=== PATIENT | male | born 1950 | race Two or more races ===

== ENCOUNTER 2018-12-31 16:08 | Inpatient (IN) | payer MEDICAID, MEDICARE ==
[~2018-12-31] VITALS: Ht 177.8 cm; Wt 85.4 kg
[2018-12-31] MEDS ORDERED: TETANUS-DIPTH-ACEL PERTUSSIS 0.5ML SYRG IM ONE (17:00)
[2018-12-31] MEDS ORDERED: VANCOMYCIN 1GM/250ML 250 ML IV ONE (17:00)
[2018-12-31] MEDS ORDERED: SODIUM CHLORIDE 0.9% 1,000 ML IV ONE (17:00)
[2018-12-31 17:30] LABS: Basophils # (auto) 0 uL; Basophils % (auto) 0.2 % (0.0-2.0); Eosinophils # (auto) 0 uL; Eosinophils % (auto) 0.1 % (0.0-7.0); Hemoglobin 13.3 g/dL (13.5-17.5); Lymphocytes % (auto) 5.9 % (10.0-50.0); Mean Corpuscular Hemoglobin 34.6 pg (28.0-32.0); Mean Corpuscular Volume 101.6 fL (80.0-100.0); Monocytes # (auto) 2.4 uL; Monocytes % (auto) 13.7 % (0.0-12.0); Neutrophils # (auto) 13.9 uL; Neutrophils % (auto) 80.1 % (37.0-80.0); Platelet Count (auto) 190 10^3/uL (140-450); Red Blood Cells 3.84 10^6/uL (4.5-5.90); Red Cell Distribution Width 14.7 % (11.8-14.3); White Blood Cell 17.3 10^3/uL (4.4-10.8)
[2018-12-31 17:43] LABS: Alanine Aminotransferase 45 U/L (16-61); Albumin 2.3 g/dL (3.4-5.0); Anion Gap 8 (5-15); Aspartate Aminotransferase 80 U/L (15-37); BUN/Creatinine Ratio 23.6; Blood Urea Nitrogen 34 mg/dL (7-18); Calcium 7.5 mg/dL (8.5-10.1); Carbon Dioxide 21 mmol/L (21-32); Chloride 96 mmol/L (98-107); GFR African American 63 mL/min; GFR Non-African American 52 mL/min; Glucose 138 mg/dL (74-106); Potassium 5.3 mmol/L (3.5-5.1); Sodium 125 mmol/L (136-145)
[2018-12-31 17:44] LABS: Lactic Acid w/Reflex 2.4 mmol/L (0.4-2.0)
[2018-12-31 17:48] LABS: Alkaline Phosphatase 130 U/L (45-117)
[2018-12-31] MEDS ORDERED: cefTRIAXone 1GM/50ML D5W 50 ML IV ONE (19:15)
[2018-12-31] MEDS ORDERED: ONDANSETRON HCL 4 MG/2 ML VIAL IV ONE (19:45)
[2018-12-31] MEDS ORDERED: MORPHINE SULFATE 4 MG/ML SYR/VIAL IV ONE (19:45)
[2018-12-31 20:00] VITALS: BP 101/62
[2018-12-31] MEDS ORDERED: ONDANSETRON HCL 4 MG/2 ML VIAL IV PRN (20:45)
[2018-12-31] MEDS: SODIUM CHLORIDE 0.9% 1,000 ML IV SCH (20:45)
[2018-12-31] MEDS ORDERED: VANCOMYCIN PER PHARMACY 0 MG IV SCH (20:45)
[2018-12-31] MEDS ORDERED: SODIUM CHLORIDE 0.9% 500 ML IV ONE (20:45)
[2018-12-31] MEDS ORDERED: ACETAMINOPHEN 325 MG TAB PO PRN (20:45)
[2018-12-31] MEDS: FAMOTIDINE 20 MG TAB PO SCH (22:24)
[2018-12-31] MEDS: HYDROcodone-ACET 5/325MG TAB PO PRN (22:24)
[2018-12-31 23:38] LABS: Anion Gap 11 (5-15); BUN/Creatinine Ratio 21.4; Blood Urea Nitrogen 28 mg/dL (7-18); Calcium 7.5 mg/dL (8.5-10.1); Carbon Dioxide 18 mmol/L (21-32); Chloride 97 mmol/L (98-107); GFR African American 70 mL/min; GFR Non-African American 58 mL/min; Glucose 111 mg/dL (74-106); Sodium 126 mmol/L (136-145)
[2019-01-01] MEDS: HYDROcodone-ACET 5/325MG TAB PO PRN (04:33)
[2019-01-01 04:46] VITALS: BP 118/58
[2019-01-01 07:01] LABS: Hematocrit 39.3 % (41.0-53.0); Hemoglobin 13.7 g/dL (13.5-17.5); Mean Corpuscular Hgb Conc. 34.9 g/dL (32.0-36.0); Red Blood Cells 3.92 10^6/uL (4.5-5.90); Red Cell Distribution Width 14.3 % (11.8-14.3)
[2019-01-01 07:03] LABS: Mean Corpuscular Volume 100.2 fL (80.0-100.0); Platelet Count (auto) 177 10^3/uL (140-450); White Blood Cell 19.5 10^3/uL (4.4-10.8)
[2019-01-01 07:21] LABS: Blast Cells 0; Eosinophils % (manual) 0 (0-7); Myelocytes % 0; Promyelocytes % 0; Reactive Lymphocytes 0
[2019-01-01 07:30] LABS: BUN/Creatinine Ratio 24.4; Calcium 7.7 mg/dL (8.5-10.1); Potassium 4.4 mmol/L (3.5-5.1)
--- NOTE | 2019-01-01 07:58 | NUR ---
Opening Shift Note Assumed care of patient, resting in bed with eyes closed, respirations even and unlabored. No S/S of distress/SOB or pain. POC board updated, will continue to monitor for changes Q1hr and PRN.
[2019-01-01 08:47] VITALS: BP 95/62
[2019-01-01] MEDS: FAMOTIDINE 20 MG TAB PO SCH ×2 (08:51→22:00)
[2019-01-01] MEDS: LEVOFLOXACIN 500MG 100 ML IV SCH (08:51)
[2019-01-01 09:15] LABS: Band Neutrophils % (manual) 30; Basophils % (manual) 1 (0.0-2.0); Lymphocytes % (manual) 4 (10.0-50.0); Metamyelocytes % 4; Monocytes % (manual) 13 (0-12)
--- NOTE | 2019-01-01 10:15 | NUR ---
WOUND CARE loom operator rounded on patient.
--- NOTE | 2019-01-01 10:35 | NUR ---
WOUND CARE NOTE: Wound care in to see patient per wound care request regarding "right forearm cellulitis with open sores" that are noted present on admission. Bedside nurse took photograph of patient's wounds upon admission for reference. Patient is 68 years old male with admitting diagnosis of R Forearm Cellulitis. Patient is resting in bed in Rm 288B. He's awake,alert and oriented. He's ambulatory and self turn and reposition. His Imer score is 21. Noted patient's Rt arm is edematous and erythremic. Multiple scabbed wound noted to anterior medial aspect of R forearm. Lateral aspect of R forearm has 9x5cm dark maroon, soft and boggy to touch with small cut and draining moderate amount of sanguinous drainage, no odor noted. Patient reported that few days ago he accidentally "smash" his Rt hand on a metal when he's working on a truck. He added that he then noted redness, swelling and pain, he thinks he's bitten by a spider but not sure. Cleansed patient's Rt forearm wounds with wound cleanser, patted dry with gauze, covered with absorbent pad, wrapped with Kerlix and secured with tape. Elevated patient's Rt arm on pillows. Patient tolerated well and denies any other wound. RECOMMENDATION: Daily/PRN dressing change to R forearm wounds per MD order, Dietary consult, possible surgical consult, elevate affected extremity on pillows, continue monitoring by wound care while patient is hospitalized. Addendum: 01/01/19 at 1319 by Thuy Petersen RN Amended: Links added.
[2019-01-01] MEDS: VANCOMYCIN 1GM/250ML 250 ML IV SCH (11:18)
[2019-01-01] MEDS: SODIUM CHLORIDE 0.9% 1,000 ML IV SCH ×3 (11:18→19:40)
--- NOTE | 2019-01-01 13:00 | NUR ---
ROUNDING Dr Goldsmith rounding on patient.
[2019-01-01 13:11] VITALS: BP 102/54
--- NOTE | 2019-01-01 15:22 | NUR ---
URINE Patient again educated on orders for urine sample. Specimen cup placed bedside.
[2019-01-01 16:59] VITALS: BP 96/59
--- NOTE | 2019-01-01 20:00 | NUR ---
OPENING NOTE RECEIVED REPORT FROM ISATU RN. ASSUMING ROLE OF CARE OF PATIENT AT THIS TIME. PATIENT SHOWING NO SIGN OF DISTRESS, SHORTNESS OF BREATH, AND PATIENT DENIES ANY PAIN. DRESSING ON ARM IS CLEAN DRY AND INTACT. IV IS CLEAN, ASYMPTOMATIC AND PATENT. PATIENT EDUCATED ON PLAN OF CARE FOR THE NIGHT AND PATIENT VERBALIZED UNDERSTANDING. BED LOWERED, CALL LIGHT WITHIN REACH, AND PATIENT WILL BE ROUNDED ON EVERY HOUR AND NEEDED.
[2019-01-01] MEDS ORDERED: LEVOFLOXACIN 500MG 100 ML IV ONE (21:00)
[2019-01-01 22:00] VITALS: BP 87/55
[2019-01-01] MEDS ORDERED: DIGOXIN (250MCG/ML) 2 ML AMPULE IV ONE (22:00)
[2019-01-01] MEDS ORDERED: SODIUM CHLORIDE 0.9% 500 ML IV ONE (22:00)
--- NOTE | 2019-01-01 22:00 | NUR ---
REPORT GIVEN TO GERALD CHILDRESS PATIENT TRANSFERRED ONTO TELEMETRY PER EMIL POON'S ORDERS. FURTHER ORDERS RECEIVED AND IMPLEMENTED PRIOR TO TRANSFER OF CARE. PATIENT IS RESTING COMFORTABLY AND IS ASYMPTOMATIC.
--- NOTE | 2019-01-01 22:00 | NUR ---
PATIENT'S VITALS TAKEN AND SHOWED INCREASED HEART RATE IN THE 150S. EKG PERFORMED AND SHOWING AFIB WITH RVR. BP WAS 87/55 AND TEMP WAS 98.6. PATIENT DENIES AND CHEST PAIN OR SHORTNESS OF BREATH. EKG TAKEN DOWN TO POON FOR SIGNATURE AND ORDERS.
--- NOTE | 2019-01-01 23:59 | NUR ---
LATEST VITAL SIGNS BP 97/64,TEMP 97.8, RR 18, 02 SAT 95%, HR 141, PATIENT REMAINS ASYMPTOMATIC, DENIES SOB, CHEST PAIN, AND PALPITATIONS. WILL CONTINUE TO MONITOR
[2019-01-02] VITALS (34 sets, daily range): BP systolic 93–173; BP diastolic 28–99
--- NOTE | 2019-01-02 00:50 | NUR ---
MYRNA HOSPITALIST, PATIENT STILL RUNNING AFIB AT 140'S, ASYMPTOMATIC. RECEIVED ORDER FROM EMIL POON TO REPEAT DIGOXIN 125 M[address] IV ONCE AND PL[address] A CARDIOLOGY CONSULT
[2019-01-02] MEDS ORDERED: DIGOXIN (250MCG/ML) 2 ML AMPULE IV ONE (01:00)
[2019-01-02 01:21] LABS: Alcohol, Urine < 3.0 mg/dL (0-5); Amphetamine Screen, Urine POSITIVE (NEGATIVE); Barbiturate Scree,Urine NEGATIVE (NEGATIVE); Benzodiazephine Screen, Urine NEGATIVE (NEGATIVE); Cannabinoid Screen, Urine POSITIVE (NEGATIVE); Cocaine Screen, Urine NEGATIVE (NEGATIVE); Phencyclidine Screen, Urine NEGATIVE (NEGATIVE)
[2019-01-02 01:23] LABS: Urine Bacteria NONE SEEN /hpf (None Seen); Urine Blood Negative /uL (Negative); Urine Specific Gravity 1.011 (1.001-1.035); Urine WBC 3 /hpf (0 - 3)
[2019-01-02 01:29] LABS: Opiate Scree,Urine POSITIVE (NEGATIVE)
[2019-01-02] MEDS: VANCOMYCIN 1GM/250ML 250 ML IV SCH ×2 (04:55→23:34)
[2019-01-02] MEDS: SODIUM CHLORIDE 0.9% 1,000 ML IV SCH ×3 (04:56→17:49)
--- NOTE | 2019-01-02 05:05 | NUR ---
PATIENT IS ON SVT AT 160-170, PATIENT REMAINS ASYMPTOMATIC. PAGED HOSPITALIST, 12 LEAD EKG DONE. WAITING FOR CALL BACK
[2019-01-02] MEDS ORDERED: ADENOSINE 6 MG/2 ML INJ IV ONE ×3 (05:24→05:45)
--- NOTE | 2019-01-02 05:29 | NUR ---
ADENOSINE: Called to bedside to administer Adenosine IV to pt as pt in SVT w/ rate 170, BP 98/57. With hospitalist at bedside, Adenosine 6mg rapid IVP administered at 0529. Pt's HR slowed down initially to rate in 90s revealing a rhythm of A-flutter. Rhythm then changed into a ST w/ frequent PACs and a rate ranging from 90s to 110s. BP 111/62 following conversion. Pt to be upgraded to [facility] status and started on Amiodarone gtt.
[2019-01-02] MEDS ORDERED: SODIUM CHLORIDE 0.9% 1,000 ML IV ONE ×2 (05:30→05:45)
[2019-01-02] MEDS ORDERED: AMIODARONE HCL 150 MG in D5W 5% 100 ML IV ONE (05:45)
[2019-01-02] MEDS ORDERED: AMIODARONE HCL 900 MG IV ONE (05:45)
[2019-01-02] MEDS ORDERED: AMIODARONE HCL (50 MG/ ML) 3 ML VIAL IV ONE (05:45)
[2019-01-02] MEDS ORDERED: AMIODARONE HCL 900 MG in DEXTROSE 500 ML IV SCH (05:47)
[2019-01-02 06:08] LABS: Basophils # (auto) 0.1 uL; Eosinophils # (auto) 0.2 uL; Hemoglobin 14.5 g/dL (13.5-17.5); Mean Corpuscular Volume 100.3 fL (80.0-100.0); Monocytes # (auto) 1.6 uL; Monocytes % (auto) 8.4 % (0.0-12.0)
--- NOTE | 2019-01-02 06:10 | NUR ---
TRANSFERRED PATIENT TO ICU ROOM 104. REPORT GIVEN TO MONROE MARTINEZ
[2019-01-02 06:12] LABS: Basophils % (auto) 0.4 % (0.0-2.0); Hematocrit 41.8 % (41.0-53.0); Lymphocytes # (auto) 1.3 uL; Lymphocytes % (auto) 6.8 % (10.0-50.0); Mean Corpuscular Hemoglobin 34.7 pg (28.0-32.0); Mean Corpuscular Hgb Conc. 34.6 g/dL (32.0-36.0); Neutrophils # (auto) 15.7 uL; Neutrophils % (auto) 83.4 % (37.0-80.0); Nucleated Red Blood Cells % 0.1 %; Platelet Count (auto) 187 10^3/uL (140-450); Red Blood Cells 4.16 10^6/uL (4.5-5.90); Red Cell Distribution Width 14.4 % (11.8-14.3); White Blood Cell 18.8 10^3/uL (4.4-10.8)
--- NOTE | 2019-01-02 06:15 | NUR ---
RECEIVED PATIENT FROM TELEMETRY. REPORT FROM GERALD RN. PT. ALERT AND ORIENTED X4. ABLE TO HELP WITH TRANSFER TO ICU BED. PLACED ON NUCLEAR CONTROL ROOM OPERATOR WHICH SHOWS SINUS RHYTHM 90'S, WITH FREQUENT PAC'S, SBP 95/59. LUNGS CLEAR, ON ROOM AIR. SATS 95%. IV SITE TO RIGHT EJ PRESENT. NEW IV SITE STARTED TO LFA. VANCOMYCIN IN PROGRESS. MRSA COLLECTED.
[2019-01-02 06:21] LABS: Albumin 1.6 g/dL (3.4-5.0); Anion Gap 8 (5-15); Blood Urea Nitrogen 36 mg/dL (7-18); Calcium 7.3 mg/dL (8.5-10.1); Carbon Dioxide 21 mmol/L (21-32); Chloride 99 mmol/L (98-107); Glucose 124 mg/dL (74-106); Potassium 3.9 mmol/L (3.5-5.1); Sodium 128 mmol/L (136-145)
[2019-01-02 06:27] LABS: Alanine Aminotransferase 42 U/L (16-61); Alkaline Phosphatase 148 U/L (45-117); Aspartate Aminotransferase 76 U/L (15-37); Bilirubin, Total 1.2 mg/dL (0.2-1.0); GFR African American 75 mL/min; GFR Non-African American 62 mL/min
--- NOTE | 2019-01-02 06:30 | NUR ---
RIGHT FOREARM TO UPPER ARM SWOLLEN RED AND FIRM. DRESSING TO RIGHT ELBOW AREA DUE TO ABSCESS PRESENT. PT. 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
--- NOTE | 2019-01-02 06:55 | NUR ---
SPOKE TO CLEVE STEIN REGARDING STARTING AMIODARONE DRIP, INSTRUCTED TO HOLD FOR NOW.
--- NOTE | 2019-01-02 07:20 | NUR ---
OPENING NOTE RECEIVED REPORT AND ASSUMED CARE OF PT FROM MICHELLE CHILDRESS
[2019-01-02] MEDS ORDERED: ceFAZolin 1GM/50ML 0 ML IV ONE (08:32)
[2019-01-02] MEDS ORDERED: ceFAZolin 1GM VL ONE (08:32)
--- NOTE | 2019-01-02 09:10 | NUR ---
SURGERY CONSULT STUDENT AT BEDSIDE ASSESSED WOUND FOR POSSIBLE SURGERY TODAY
--- NOTE | 2019-01-02 09:10 | NUR ---
WOUND CULTURE SENT TO LAB VIA [facility]
--- NOTE | 2019-01-02 09:15 | NUR ---
DR. BORREGO AT BEDSIDE SPOKE WITH PT. PT VERBALIZES UNDERSTANDING OF PLAN. ORDERS RECEIVED
[2019-01-02] MEDS: LEVOFLOXACIN 500MG 100 ML IV SCH (09:47)
[2019-01-02] MEDS: FAMOTIDINE 20 MG TAB PO SCH ×2 (09:48→22:07)
--- NOTE | 2019-01-02 10:00 | NUR ---
Debra NGO AT BEDSIDE ORDERS RECEIVED
[2019-01-02] MEDS ORDERED: DILTIAZEM HCL 60 MG TAB PO ONE (10:15)
--- NOTE | 2019-01-02 10:30 | NUR ---
DR. RUSSO AT BEDSIDE PLAN TO BE TAKEN TO SURGERY TOMORROW FOR RIGHT ARM
--- NOTE | 2019-01-02 10:40 | NUR ---
PT VOIDED IN THE TOILET MINIMAL ASSISTANCE NEEDED
[2019-01-02] MEDS ORDERED: POTASSIUM CHL 20 Meq TABLET PO ONE (10:45)
[2019-01-02 10:52] LABS: Partial Thromboplastin Time 41.5 sec (23.64-32.05)
--- NOTE | 2019-01-02 11:11 | NUR ---
NUTRITION CONSULT/ASSESSMENT NOTES Please refer to link notes of nutrition screen form filed under the intervention section of the plan of care for further details. Est. Needs: 1800 kcal to 2200 kcal (25-30 kcal/kgBW), 73 gms to 102 gms pro (1.0-1.4 gms/kgBW d/t severe hypoalbuminemia, wound healing). Will continue to monitor pertinent labs and reassess nutrient need prn Thank you for this consult. Addendum: 01/02/19 at [address] Amended: Links added.
[2019-01-02 11:47] LABS: INR 1.46 (0.9-1.15)
[2019-01-02] MEDS: AMIODARONE HCL 900 MG in DEXTROSE 500 ML IV SCH (11:47)
[2019-01-02] MEDS: DILTIAZEM HCL 60 MG TAB PO SCH ×2 (14:03→22:11)
--- NOTE | 2019-01-02 14:20 | NUR ---
CHANGED DRESSING AND CHANGED LINENS CLEANED WOUND WITH WOUND CLEANSER, PAT DRY WITH GAUZE, NON-ADHESIVE OPTIFOAM PLACED WITH ABD PAD FOR DRAINAGE AND WRAPPED LOOSELY WITH CHUCKS FOR EXCESS DRAINAGE. PT TOLERATED PROCEDURE WELL. FULL LINEN CHANGE DONE
--- NOTE | 2019-01-02 14:44 | NUR ---
PT VOIDED IN TOILET WITH MINIMAL ASSISTANCE PT NOW SITTING IN CHAIR. STATES WANTS TO SIT IN CHAIR FOR A LITTLE WHILE. NO S/S OF DISTRESS. WILL CONTINUE TO MONITOR
--- NOTE | 2019-01-02 16:00 | NUR ---
PT STATES CHEST PAIN WITH MOVEMENT. EKG DONE.
--- NOTE | 2019-01-02 16:20 | NUR ---
DR. NGO PAGED REGARDING PT STATING CHEST PAIN AND EKG DONE. ORDERS RECEIVED
--- NOTE | 2019-01-02 18:00 | NUR ---
PT TOOK OFF DRESSING RE-APPLIED NON-OCCLUSIVE DRESSING WITH CHUCKS OVER ARM. WILL CONTINUE TO MONITOR
--- NOTE | 2019-01-02 19:10 | NUR ---
CLOSING NOTE SHIFT REPORT GIVE BACK AND CARE ENDORSED TO MICHELLE CHILDRESS
--- NOTE | 2019-01-02 20:00 | NUR ---
ASSESSMENT: ALERT AND ORIENTED. UP TO TOILET. DRESSING TO CRISTOPHER OFF, LARGE AMT. OF SEROSANGUINEOUS DRAINAGE NOTED. LARGE AMT. OF REDNESS EXTENDING FROM MID ARM TO AXILLA AREA, TIGHT, HOT AND WITH DECREASE SENSATION PER PATIENT TO MID PORTION OF AFFECTED AREA. PUNCTURE AREA PER PATIENT WITH ESCHAR PRESENT AND DIME SIZE OPEN AREA WITH FIBER TISSUE WHICH APPEARS TO DRAIN THE MOST. OPTIFOAM TO ECCHYMOTIC AREA TO HELP CONTROL WITH DRAINAGE. REST OF AREA CLEANED WITH HCG WIPES. SEVERAL OTHER PUNCTURE SITE NOTED ALONG ARMS WITH SCABS FORMATION BUT TO SIGNS OF INFECTION. WILL CONTINUE TO MONITOR. CARDIAC - SINUS RHYTHM 80'S WITH FREQUENT PVC'S, SBP 120'S. DENIES ANY CHEST PAIN OR SHORTNESS OF BREATH. PT. ABLE TO TRANSFER TO TOILET WITH MINIMAL ASSIST. ABDOMEN - SOFT - (+) B.S B.M TONIGHT. POOR APPETITE, 25% OF MEAL TRAY CONSUMED. VOIDS - URINAL, INSTRUCTED TO SAVE TO ASSESS IV TO RIGHT EJ LEAKING. IV SITE TO LFA #20 INTACT. FLUIDS TRANSFERRED TO THIS SITE. RADIAL AND PEDAL PULSES 2+ BILATERALLY.
[2019-01-02] MEDS: TEMAZEPAM 15 MG CAP PO PRN (22:12)
--- NOTE | 2019-01-02 22:45 | NUR ---
PT. TO BE TRANSFERRED TO [facility] PER ORDERS. REPORT GIVEN TO LOWELL CHILDRESS. WILL TRANSFER PATIENT VIA BED. PT. AWARE OF TRANSFER AT THIS TIME.
--- NOTE | 2019-01-02 23:40 | NUR ---
ICU XFER TO BED 262 PATIENT IS AWAKE ALERT AND ORIENTED. LUNGS CLEAR TO AUSCULTATION ON RA POX 100%. BOWEL SOUNDS ACTIVE, ABD IS ROUND AND NON-TENDER. RIGHT FOREARM WITH OPTIFOAM OPENED TO ASSESS SITE, ABSCESS TO RIGHT FA HAS COPIOUS AMOUNT OF SEROUS-SANGUINEOUS DRAINAGE, NO FOUL ODOR NOTED.NECROTIC AREA TO RIGHT FA WITH PITTING EDEMA TO RIGHT HAND +2,ERYTHEMA AND WARMTH NOTED FROM RIGHT HAND TO CHEST. NEW OPTIFOAM PLACED TO RIGHT FOREARM. VS WNL: SEE VS SPREADSHEET. PATIENT MADE AWARE OF PROCEDURE SCHEDULED TOMORROW, AND IS AWARE AND VERBALIZES UNDERSTANDING, AWARE OF NPO STATUS AFTER MIDNIGHT. ORANGE JUICE PROVIDED AT THIS TIME.RIGHT EJ 18 GAUGE IV FLUSHED AND PATENT, LEFT FA 20G FLUSHED AND PATENT, CONNECTED TO NS PER ORDERS.ORIENTED TO CALL LIGHT AND INSTRUCTED TO NOT GET OUT OF BED WITHOUT ASSISTANCE AND TO CALL PRN, PATIENT VERBALIZES UNDERSTANDING CONTINUE POC.
[2019-01-03] VITALS (7 sets, daily range): BP systolic 103–158; BP diastolic 56–80
--- NOTE | 2019-01-03 00:23 | NUR ---
SB ASSIST PATIENT TO TOILET PATIENT SITTING UP ON SIDE OF BED, REQUESTING TO USE TOILET.GAIT NOTED TO BE UNSTEADY AND SHUFFLED. EDUCATED AND INFORMED PATIENT NOT TO GET OUT OF BED AND URINAL PROVIDED. PATIENT BACK TO BED WITHOUT INCIDENT. CONTINUE TO MONITOR, BED ALARM PLACED.
[2019-01-03] MEDS: SODIUM CHLORIDE 0.9% 1,000 ML IV SCH ×4 (02:50→18:20)
--- NOTE | 2019-01-03 04:15 | NUR ---
AM CARE/CHG WIPES/WOUND CARE LARGE AMOUNTS OF SEROUS-SANGUINEOUS DRAINAGE SATURATED BED LINEN. COMPLETE BED LINEN CHANGE DONE, PATIENT CLEANSED WITH CHG WIPES FOR PROCEDURE SCHEDULED TODAY. WOUND CARE DONE TO RIGHT FOREARM ABSCESS AND WRAPPED WITH KERLIX. SKIN INTEGRITY REASSESSED AT THIS TIME, SACRUM INTACT, NO NEW SKIN ISSUES. GOWN PLACED ON PATIENT, REPOSITIONED IN BED FOR COMFORT. IV DRESSING TO RIGHT EJ DONE PER HOSPITAL PROTOCOL. CALL LIGHT GIVEN TO PATIENT. CONTINUE MONITORING CLOSELY.
--- NOTE | 2019-01-03 04:27 | NUR ---
12 LEAD EKG DONE AND PLACED IN HARD CHART
[2019-01-03 05:44] LABS: Basophils # (auto) 0.1 uL; Basophils % (auto) 0.3 % (0.0-2.0); Eosinophils # (auto) 0.3 uL; Eosinophils % (auto) 1.7 % (0.0-7.0); Hemoglobin 13.9 g/dL (13.5-17.5); Lymphocytes # (auto) 1.5 uL; Lymphocytes % (auto) 9.2 % (10.0-50.0); Mean Corpuscular Hemoglobin 34.7 pg (28.0-32.0); Mean Corpuscular Hgb Conc. 34.8 g/dL (32.0-36.0); Mean Corpuscular Volume 99.9 fL (80.0-100.0); Monocytes # (auto) 1.6 uL; Monocytes % (auto) 9.8 % (0.0-12.0); Neutrophils # (auto) 12.6 uL; Platelet Count (auto) 206 10^3/uL (140-450); Red Cell Distribution Width 14.6 % (11.8-14.3); White Blood Cell 15.9 10^3/uL (4.4-10.8)
[2019-01-03] MEDS: DILTIAZEM HCL 60 MG TAB PO SCH ×3 (05:54→19:32)
[2019-01-03 06:19] LABS: Albumin 1.6 g/dL (3.4-5.0); Potassium 3.8 mmol/L (3.5-5.1)
[2019-01-03 06:26] LABS: BUN/Creatinine Ratio 29.5; Bilirubin, Total 1.3 mg/dL (0.2-1.0); Calcium 7.4 mg/dL (8.5-10.1); Total Protein 6.1 g/dL (6.4-8.2)
--- NOTE | 2019-01-03 07:30 | NUR ---
RECEIVED PATIENT LYING IN BED AWAKEN WHEN NAME WAS CALLED A/O TIMES 4, O2 BY R/A, STATES HE USES THE URINAL, RTEJ 18G FLUSHED AND PATENT, NS AT 150ML/HR INFUSING INTO THE LFA 20G BY THE IV PUMP, DRESSING TO THE RT ARM,
--- NOTE | 2019-01-03 08:30 | NUR ---
EXPRESS TO THE PATIENT THAT HE CAN'T HAVE ANY THING TO EAT BECAUSE OF THE SURGERY, STATES HE KNOWS
--- NOTE | 2019-01-03 08:45 | NUR ---
Suki NGO MP IN TO SEE THE PATIENT AND WROTE FOR CLEARANCE FOR SURGERY
--- NOTE | 2019-01-03 09:10 | NUR ---
DR BORREGO IN TO SEE THE PATIENT NO NEW ORDERS
--- NOTE | 2019-01-03 09:30 | NUR ---
EXPLAIN MEDICATIONS TO THE PATIENT, REGARDING THE DOSAGE, USAGE, AND SIDE EFFECTS, VERBALIZED THAT HE UNDERSTOOD AND PO MEDS HELD PATIENT IS NPO
[2019-01-03] MEDS: FAMOTIDINE 20 MG TAB PO SCH ×2 (09:38→19:30)
[2019-01-03] MEDS: LEVOFLOXACIN 500MG 100 ML IV SCH (09:42)
--- NOTE | 2019-01-03 10:02 | NUR ---
assessment No needs identified Addendum: 01/04/19 at 1002 by Aysha KOVACS Amended: Links added.
--- NOTE | 2019-01-03 10:06 | NUR ---
MAGANIGN IN BED WAITING TO GO TO SURGERY, STATES HE IS HUNGRY AND WANTS SOME WATER, EXPRESS TO HIM THAT HE CAN'T EAT UNTIL AFTER THE SURGERY AND STATES HE KNOWS
--- NOTE | 2019-01-03 10:23 | NUR ---
FRIENDS IN TO VISIT WITH THE PATIENT
[2019-01-03] MEDS: VANCOMYCIN 1GM/250ML 250 ML IV SCH ×2 (10:49→19:32)
--- NOTE | 2019-01-03 11:00 | NUR ---
SURGEON IN TO SEE THE PATIENT AND EXPRESS TO HIM THAT THE PROCEDURE MAY BE A LITTLE LATER DUE TO AN EMERGENCY
--- NOTE | 2019-01-03 11:24 | NUR ---
FRIENDS LEFT AND WENT HOME
--- NOTE | 2019-01-03 11:42 | NUR ---
FRIEND BACK TO THE ROOM
[2019-01-03] MEDS: AMIODARONE HCL 900 MG in DEXTROSE 500 ML IV SCH (11:47)
--- NOTE | 2019-01-03 12:19 | NUR ---
REPORT CALLED TO THE PRE- OP NURSE AND PATIENT TAKEN TO THE OR BY THE BED
--- NOTE | 2019-01-03 13:20 | NUR ---
PATIENT STILL IN THE OR
[2019-01-03] MEDS ORDERED: ceFAZolin 1GM VL ONE (14:05)
[2019-01-03] MEDS ORDERED: ceFAZolin 1 GM/50ml D5W BAG /AE IV ONE (14:20)
[2019-01-03] MEDS ORDERED: ONDANSETRON HCL 4 MG/2 ML VIAL IV ONE (14:20)
[2019-01-03] MEDS ORDERED: DexAMETHasone SOD PHOS 10MG/1ML VIAL INJ IV ONE (14:20)
[2019-01-03] MEDS ORDERED: LEVOFLOXACIN 500MG 100 ML IV ONE (14:24)
[2019-01-03] MEDS ORDERED: fentaNYL CITRATE 100 MCG/2 ML VL ONE (14:26)
[2019-01-03] MEDS ORDERED: MIDAZOLAM HCL 1MG/1ML-2 ML VIAL ONE (14:26)
[2019-01-03] MEDS ORDERED: PROPOFOL 10 MG/ML 20 ML IV ONE (14:27)
[2019-01-03] MEDS ORDERED: KETOROLAC TROMETH 15 mg/ml 1ML VL IV ONE (16:00)
[2019-01-03] MEDS ORDERED: HYDROmorphone HCL 2 MG/ML VL IV PRN (16:00)
[2019-01-03] MEDS: MIDAZOLAM HCL 1MG/1ML-2 ML VIAL IV PRN ×2 (16:00→16:15)
--- NOTE | 2019-01-03 16:25 | NUR ---
RECEIVED REPORT FROM THE RECOVERY ROOM NURSE REGARDING THE PATIENT
--- NOTE | 2019-01-03 16:40 | NUR ---
RECEIVED PATIENT FROM THE ROOM, DROWSY BUT ALERT, DRESSING TO THE RT FOREARM, NS INFUSING INTO THE REJ BY CONNECTED TO THE IV PUMP, 20G LFA INTACT AND PATENT, STATES HE CAN STILL USE THE URINAL, HOLDING ARM ABOVE HIS HEAD STATES IT FEELS BETTER VS 97'2-86-20-154/80
--- NOTE | 2019-01-03 17:32 | NUR ---
LYING N BED APPEARS TO BE SLEEPING
--- NOTE | 2019-01-03 18:10 | NUR ---
FAMILY CAME TO SEE ABOUT PATIENT AND WOKE HIM UP, THEN HE WANTED TO EAT OR ELSE HE WAS LEAVING , EXPRESS TO HIM THAT DINNER WAS NOT HERE YET, AND WHEN IT CAME,I WOULD GIVE IT TO HIM, CALLED AND SPOKE TO THE HIM
--- NOTE | 2019-01-03 18:30 | NUR ---
SAT UP IN BED AND ATE HIS DINNER, DRESSING TO THE RFA, PATIENT MOVES IN THE BED A LOT STATES HE CAN'T BE STILL, O2 BY R/A USES THE URINAL, SALINE LOCK TO THE LFA 20G INTACT AND PATENT, REJ 18G WITH NS AT 150ML/HR INFUSING BY THE IV PUMP, NOT COMPLAINING OF ANY PAIN TO THE ARM, WILL CONTNINUE TO MONITOR AND GIVE REPORT TO THE NEXT SHIFT
[2019-01-03] MEDS: HYDROcodone-ACET 5/325MG TAB PO PRN (19:30)
[2019-01-03] MEDS: TEMAZEPAM 15 MG CAP PO PRN (19:30)
[2019-01-04] MEDS: SODIUM CHLORIDE 0.9% 1,000 ML IV SCH ×4 (01:00→21:23)
[2019-01-04 04:00] VITALS: BP 148/78
[2019-01-04 05:13] LABS: Basophils # (auto) 0 uL; Eosinophils # (auto) 0 uL; Eosinophils % (auto) 0.1 % (0.0-7.0); Hemoglobin 14.9 g/dL (13.5-17.5); Lymphocytes % (auto) 6.5 % (10.0-50.0); Nucleated Red Blood Cells % 0.1 %
[2019-01-04 05:18] LABS: Hematocrit 42.3 % (41.0-53.0); Mean Corpuscular Hemoglobin 34.9 pg (28.0-32.0); Mean Corpuscular Hgb Conc. 35.2 g/dL (32.0-36.0); Mean Corpuscular Volume 99.4 fL (80.0-100.0); Monocytes # (auto) 0.9 uL; Monocytes % (auto) 5.6 % (0.0-12.0); Neutrophils % (auto) 87.8 % (37.0-80.0); Platelet Count (auto) 211 10^3/uL (140-450); Red Blood Cells 4.26 10^6/uL (4.5-5.90); Red Cell Distribution Width 14.7 % (11.8-14.3); White Blood Cell 15.9 10^3/uL (4.4-10.8)
[2019-01-04 05:46] LABS: Albumin 1.8 g/dL (3.4-5.0); BUN/Creatinine Ratio 23.7; Calcium 7.6 mg/dL (8.5-10.1); Potassium 4.8 mmol/L (3.5-5.1)
[2019-01-04 05:49] LABS: Bilirubin, Total 0.8 mg/dL (0.2-1.0); Total Protein 6.4 g/dL (6.4-8.2)
[2019-01-04] MEDS: VANCOMYCIN 1GM/250ML 250 ML IV SCH ×2 (06:01→17:36)
[2019-01-04] MEDS: DILTIAZEM HCL 60 MG TAB PO SCH ×3 (06:03→21:58)
--- NOTE | 2019-01-04 07:50 | NUR ---
Opening Shift Note Assumed care of patient, awake and alert, lying on the right side. No S/S of distress/SOB or pain, stated that he's hungry, juices provided, patient made aware that we are waiting for the breakfast tray. Instructed on POC and to call for assist PRN, will continue to monitor for changes Q1hr and PRN.
[2019-01-04 08:00] VITALS: BP 130/68
--- NOTE | 2019-01-04 08:00 | NUR ---
WOUND CARE NOTE: WOUND VAC ORDERED BY DR. RUSSO. SPOKE WITH DR. RUSSO AT THIS TIME. HE IS ADVISING THAT WOUND VAC BE PLACED TOMORROW ON 01/05/19. PATIENT TO KEEP STERILE POST OPERATIVE DRESSING IN PLACE TILL THEN. DR. RUSSO IS ALSO REQUESTING WOUND VAC FOR HOME AT DISCHARGE. WILL IMPLEMENT HOME WOUND VAC ORDER DOCUMENTATION FOR CHILDREN'S CHOIR DIRECTOR/CASE MANAGEMENT'S ACTION.
--- NOTE | 2019-01-04 08:30 | NUR ---
Patient having breakfast, sitting up on the bed, his families at the bedside asa well.
[2019-01-04] MEDS: LEVOFLOXACIN 500MG 100 ML IV SCH (09:28)
--- NOTE | 2019-01-04 09:45 | NUR ---
Dr. Goldsmith at the bedside, plan of care discussed with patient and his family (daughter and his ex-), received order to transfer to Tele. Will continue to monitor and care.
--- NOTE | 2019-01-04 10:00 | NUR ---
IV insertion left AC IV access obtained, via clean sterile technique by inserting 22 gauge catheter at left AC after 2 attempts. IV secured properly. No trauma to site. Patient tolerated procedure well.
--- NOTE | 2019-01-04 10:00 | NUR ---
The contact number: Daughter Jassi : [phone]) Ex- (Catalina : [phone])
[2019-01-04] MEDS: FAMOTIDINE 20 MG TAB PO SCH ×2 (10:03→21:59)
[2019-01-04] MEDS: HYDROcodone-ACET 5/325MG TAB PO PRN ×3 (10:04→20:02)
--- NOTE | 2019-01-04 10:05 | NUR ---
IV removal at left forearm and right EJ IV DC'd with sterile technique, catheter fully intact. Pressure dressing applied to site. Patient tolerated procedure well.
--- NOTE | 2019-01-04 10:17 | NUR ---
Sharron TAFFY CANDY MAKER for Dr. Castillo seen and examined patient, plan of care discussed with patient and his family, will continue to monitor, no new order for this time.
[2019-01-04] MEDS: AMIODARONE HCL 900 MG in DEXTROSE 500 ML IV SCH (11:47)
[2019-01-04 12:00] VITALS: BP 153/83
--- NOTE | 2019-01-04 12:11 | NUR ---
received a call from Lab that Patient has positive for MRSA : Nares and wound, on contact isolation at this time.
--- NOTE | 2019-01-04 13:29 | NUR ---
Lunch tray provided, but patient still sleeping.
--- NOTE | 2019-01-04 14:13 | NUR ---
Patient had Lunch around 25%, sitting and talking to his families, no complaining of pain, stated that he would like to go home. Patient and his families made aware that we are still waiting for the room at the Tele.
--- NOTE | 2019-01-04 15:08 | NUR ---
No betadine -saturated kerlix available , try to call wound care nurse several time, no body pharmacy picking tech a call, called at the office as well regarding alternative treatment.
--- NOTE | 2019-01-04 15:48 | NUR ---
Provided dressing change at right forearm at this time, clean with cleaning wound: around the wound, clean the wound with NS, PAT dry, cover Kerlix with Betadine, cover with ABD and Kerlix. Will continue to monitor and care. [place]vine given after wound care provided for pain management.
[2019-01-04 16:00] VITALS: BP 140/75
--- NOTE | 2019-01-04 16:24 | NUR ---
Patient is sleeping, lying on the right side, vital sign stable, will continue to monitor and care.
--- NOTE | 2019-01-04 18:07 | NUR ---
[facility] pt transferred to floor [facility] transferred to room 205 via hospital bed, on cardiac cath lab radiology technologist Tele#[id number]. All patient medications and personal belongings transferred with patient to receiving floor. Patient care transferred to Beatris CHILDRESS. The room will ready around 10 minutes.
--- NOTE | 2019-01-04 18:20 | NUR ---
TELEMETRY TRANSFER FROM [facility] Assumed care of patient after report received.
--- NOTE | 2019-01-04 19:20 | NUR ---
Opening Shift Note Assumed care of patient, awake and alert. Family at bed side. Patient verbalizes right arm pain rated 9/10. Will medicate as per order, and reassess. Instructed family and patient on POC and to call for assist PRN, will continue to monitor for changes Q1hr and PRN.
[2019-01-04 20:00] VITALS: BP 154/79
[2019-01-04] MEDS: TEMAZEPAM 15 MG CAP PO PRN (20:01)
[2019-01-04 21:30] VITALS: BP 151/79
[2019-01-05] VITALS (7 sets, daily range): BP systolic 142–184; BP diastolic 61–84
[2019-01-05] MEDS: SODIUM CHLORIDE 0.9% 1,000 ML IV SCH ×4 (03:40→23:40)
--- NOTE | 2019-01-05 03:52 | NUR ---
ROUNDS PATIENT RESTING IN BED COMFORTABLY, EVEN AND UNLABORED RESPIRATIONS. NO S/S OF PAIN/SOB OR DISCOMFORT. CALL LIGHT WITHIN REACH. WILL CONTINUE ROUNDING Q1H AND PRN.
[2019-01-05] MEDS: HYDROcodone-ACET 5/325MG TAB PO PRN ×4 (04:37→18:30)
[2019-01-05] MEDS: VANCOMYCIN 1GM/250ML 250 ML IV SCH ×2 (06:12→17:33)
[2019-01-05] MEDS: DILTIAZEM HCL 60 MG TAB PO SCH ×3 (06:12→21:40)
--- NOTE | 2019-01-05 07:20 | NUR ---
Opening Shift Note Assumed care of patient, awake and alert. No S/S of distress/SOB or pain. Instructed on POC and to call for assist PRN, will continue to monitor for changes Q1hr and PRN.
--- NOTE | 2019-01-05 07:23 | NUR ---
ENDORSED CARE TO MONROE Nuñez, PATIENT RESTING IN BED COMFORTABLY, NO S/S OF PAIN OR DISTRESS. CALL LIGHT WITHIN REACH.
[2019-01-05] MEDS: FAMOTIDINE 20 MG TAB PO SCH ×2 (09:46→21:39)
[2019-01-05] MEDS: AMIODARONE HCL 900 MG in DEXTROSE 500 ML IV SCH (11:22)
--- NOTE | 2019-01-05 12:27 | NUR ---
Nutrition Follow-up Notes Wt.: 81.9 kg pt was sleeping with no family by bedside. per records pt with sepsis and abscess to forearm. per records pt s/p I& D for same. pt with no distress noted currently on regular diet with inadequate PO of 50% x5 per RN doc Est. Needs: 1800 kcal to 2200 kcal (25-30 kcal/kgBW), 73 gms to 102 gms pro (1.0-1.4 gms/kgBW d/t severe hypoalbuminemia, wound healing). Will continue to monitor pertinent labs and reassess nutrient need prn Labs: BUN 23 H, CA 7.6 L, ALB 1.8 L, GLU 133 H Skin: Imer scale 16 mod risk, s/p I &D for forearm abscess per RN doc. refer to WC notes for details GI: Pt has no BM reported per cognos consultant. PES: Altered nutrition related lab values r/t current/chronic medical condition aeb hyperglycemia, hyponatremia, elev. LFTs, hyperbilirubinemia, hypocalcemia and severe hypoalbuminemia Increased nutrient needs r/t chronic current medical condition aeb severe hypoalbuminemia, wound healing,<consumed meals. Will continue to monitor PO intake, skin status, pertinent labs and weight trend. F/u in 3-5 days. Rec.: 1.) Consider Ensure Enlive 1 carton TID. 2.) If Albumin level continues trending down, consider Prostat 1 pkt BID. 3.) Consider daily MVI with minerals and Asc acid 500 mgs BID. 4.) Continue close supervision and feeding assistance prn during meals 5.) Refer to CDE/RD for further nutrition education and weight monitoring upon discharged. 6.) Continue current plan of care.
--- NOTE | 2019-01-05 12:35 | NUR ---
Midline Placement Patient educated on need for midline placement. All risks and benefits explained and all questions and concerns addresses prior to procedure. 18g/10cm midline inserted via left basilic vein using Ultrasound. Sterile technique utilized. Blood return obtained from single lumen and flushed easily with NS using proper technique. Midline secured with saline lock; biodisc and occlusive dressing applied. Primary RN notified. Midline lot #[id number].
--- NOTE | 2019-01-05 12:49 | NUR ---
at 1145 hrs sent question to ss asking if this pt had [facility]. since wrote this in his notes, awaiting response
--- NOTE | 2019-01-05 14:30 | NUR ---
WOUND CARE NOTE: Wound care team in to place wound vac to right arm surgical wound per Dr Franklin's order. Patient previously premedicated with [place] by bedside RN, Beatris. Dressing removed, largely saturated with serosanguineous drainage. Wound measures 10x6x0.5cm with dusky red wound bed and tendon exposed. Wound cleansed with wound cleanser, patted dry. Wound bed covered with petroleum gauze to protect tendon, and periwound protect with no-sting barrier and transparent drape. Small black sponge placed over wound bed and covered with drape. Tract pad applied and suction achieved at 125mm Hg continuous suction with no leak detected. Patient tolerated well. Next dressing changed scheduled for 01/08/19. Wound care team to follow. Addendum: 01/05/19 at 1641 by GAGE SCHWARTZ RN Amended: Links added.
--- NOTE | 2019-01-05 16:21 | NUR ---
Per SS consult for home health with IV abx vacomycin 1.5 gm IV daily through [facility] line for 2 week. Information and choice letter was given to Pt. Pt golden Bailey was at bed side. Pt requested [facility] Ph( [phone]) Fax: ) faxed medical records. Pt verbalize and agrees d/c plan. Pt golden Bailey requested for HH to contact her and Pt agrees. Per Wilfredo from [facility] Pt has been accepted and service to start within 48hrs upon d/c. Informed MONROE Spear. Addendum: 01/05/19 at 1652 by ALVIN KOVACS Amended: Links added. Addendum: 01/06/19 at 1614 by ALVIN KOVACS Per Dr. Goldsmith reccomended [facility]. Per Pt he requested for daugther to decide. Contacted bao Bailey and she said she research the home agency and she like the review. Contacted [facility] Ph: ) Fax : ( [phone]) faxed medical records . Liam Combs from [email or web address] Pt has been accepted within 48 hrs upon d/c. Per Garret from [facility] they need medication infusion and wound vac company ([employer]) upon d/c. Contacted [facility] Ph: Fax: ) faxed medical records. Liam Méndez from [facility] she will follow up on wednesday01/09/19 with a status. Liam Méndez to reach her at ph ) ext. [phone].
--- NOTE | 2019-01-05 19:20 | NUR ---
DAUGHTER MINOR VERBALIZES CONCERN REGARDING D/C PLAN FOR 01/06. STATES FEELING UNEASY ABOUT HER FATHERS CONDITION AND FEARS D/C MAY BE TOO SOON. REQUESTS MEETING WITH ATTENDING TO POSSIBLY HOLD DISCHARGE.
--- NOTE | 2019-01-05 20:22 | NUR ---
Opening Shift Note Assumed care of patient. Patient resting in bed comfortably, no s/s of pain or distress. Daughter Lynn at bed side. Instructed on POC and to call for assist PRN, will continue to monitor for changes Q1hr and PRN.
[2019-01-05] MEDS: TEMAZEPAM 15 MG CAP PO PRN (21:40)
[2019-01-06 05:35] VITALS: BP 155/85
[2019-01-06] MEDS: VANCOMYCIN 1GM/250ML 250 ML IV SCH ×3 (05:44→18:31)
[2019-01-06] MEDS: DILTIAZEM HCL 60 MG TAB PO SCH ×3 (05:45→21:33)
--- NOTE | 2019-01-06 06:26 | NUR ---
CLOSING ROUNDS PATIENT RESTING IN BED COMFORTABLY WITH EVEN AND UNLABORED RESPIRATIONS OF 18 BPM. VERBALIZES TOLERABLE PAIN. REPOSITIONED FOR COMFORT. CALL LIGHT WITHIN REACH.
[2019-01-06] MEDS: SODIUM CHLORIDE 0.9% 1,000 ML IV SCH ×3 (06:29→20:10)
--- NOTE | 2019-01-06 07:45 | NUR ---
OPENING SHIFT NOTE PATIENT AWAKE AND ALERT X4. VERBALIZED UNDERSTANDING DAYS POC. PATIENT REFUSED TO LISTEN TO MD AND SS, STATING "TALK TO MY DAUGHTER". BED IS IN LOWEST LOCKED POSITION CALL LIGHT WITH IN REACH WILL CONTINUE TO MONITOR
[2019-01-06 08:00] VITALS: BP 155/85
[2019-01-06 09:00] VITALS: BP 138/83
[2019-01-06] MEDS: FAMOTIDINE 20 MG TAB PO SCH ×2 (10:27→21:33)
[2019-01-06] MEDS: amLODIPine BESYLATE 5 MG TAB PO SCH (10:27)
[2019-01-06] MEDS: HYDROcodone-ACET 5/325MG TAB PO PRN ×2 (10:47→17:37)
--- NOTE | 2019-01-06 12:10 | NUR ---
WOUND CARE NOTE: Wound care team doing daily rounding on wound vac placed 01/05/19. Patient is currently resting. Dressing is C/D/I. No signs of leaking or blockage noted. Suction remains at 125mm Hg continuous pressure. Approximately ~50ml of sanguinous fluid noted in canister. Next dressing change scheduled for 01/08/19.
[2019-01-06 13:00] VITALS: BP 152/84
[2019-01-06 17:00] VITALS: BP 144/73
--- NOTE | 2019-01-06 19:09 | NUR ---
END OF SHIFT NOTE PATIENT LAYING IN BED WITH EYES CLOSED CHEST RISE AND FALL VISUALIZED. BED IN LOWEST LOCKED POSITION CALL LIGHT WITH IN REACH. ENDORSED CARE TO NOC RN
--- NOTE | 2019-01-06 19:20 | NUR ---
OPENING NOTE REPORT RECEIVED FROM DAY SHIFT RN PATIENT SLEEPING AT THIS TIME, NO VISIBLE SIGNS OF DISTRESS NOTED. WOUND VAC IN PLACE TO RIGHT FOREARM TO 125MM HG OF SUCTION. APPROXIMATELY 100CC OF SEROSANGUINEOUS FLUID IN CANISTER. NO SIGNS OF LEAKS NOTED. MIDLINE TO LEFT UPPER ARM RUNNING NS AT 150ML/HR. BED EXIT ALARM ON. CALL LIGHT AND ALL PERSONAL BELONGINGS WITHIN REACH.
[2019-01-06] MEDS: TEMAZEPAM 15 MG CAP PO PRN (21:34)
[2019-01-06 21:48] VITALS: BP 157/92
--- NOTE | 2019-01-06 22:31 | NUR ---
REPORT ENDORSED TO MONROE WHYTE TO ASSUME CARE OF PATIENT
--- NOTE | 2019-01-06 22:45 | NUR ---
Opening Shift Note: A&Ox4, resting in bed. Room air, pain level 0/10, and at baseline ambulates independently without assistive devices; currently SBA. Bed locked in lowest position, side rails up x2, call light within reach, and bed alarm on for patient safety. IV midline in left upper extremity running NS at 150 ml/hr inserted on 01/05/19. BRYANNA downgrade on 01/04/19. Patient is s/p I&D of right forearm with Dr. Franklin on 01/03/19 with wound vac placement at 125 continuous suction. 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 POC discussed and questions answered. Will continue to round prn.
[2019-01-07] MEDS: SODIUM CHLORIDE 0.9% 1,000 ML IV SCH ×4 (02:29→22:20)
[2019-01-07] MEDS: HYDROcodone-ACET 5/325MG TAB PO PRN ×3 (02:29→20:02)
[2019-01-07 04:43] VITALS: BP 145/85
[2019-01-07] MEDS: VANCOMYCIN 1GM/250ML 250 ML IV SCH ×2 (05:25→17:37)
[2019-01-07] MEDS: DILTIAZEM HCL 60 MG TAB PO SCH ×3 (05:26→21:37)
[2019-01-07 06:59] LABS: Basophils # (auto) 0.1 uL; Basophils % (auto) 0.3 % (0.0-2.0); Eosinophils # (auto) 0.2 uL; Eosinophils % (auto) 0.7 % (0.0-7.0); Hemoglobin 14.6 g/dL (13.5-17.5); Lymphocytes # (auto) 2.9 uL; Lymphocytes % (auto) 13.1 % (10.0-50.0); Mean Corpuscular Hemoglobin 34.1 pg (28.0-32.0); Mean Corpuscular Hgb Conc. 32.3 g/dL (32.0-36.0); Mean Corpuscular Volume 105.6 fL (80.0-100.0); Monocytes # (auto) 2.5 uL; Monocytes % (auto) 11.2 % (0.0-12.0); Neutrophils # (auto) 16.5 uL; Neutrophils % (auto) 74.7 % (37.0-80.0); Nucleated Red Blood Cells % 0.1 %; Platelet Count (auto) 202 10^3/uL (140-450); Red Blood Cells 4.26 10^6/uL (4.5-5.90); Red Cell Distribution Width 15.6 % (11.8-14.3); White Blood Cell 22.1 10^3/uL (4.4-10.8)
--- NOTE | 2019-01-07 07:35 | NUR ---
OPENING SHIFT NOTE PATIENT AWAKE IN BED DENIES ANY PAIN, DISTRESS OR SOB. ALERT AND ORIENTED X4, VERBALIZED UNDERSTANDING OF DAYS POC. BED IS IN THE LOWEST LOCKED POSITION CALL LIGHT WITHIN REACH WILL CONTINUE TO MONITOR
--- NOTE | 2019-01-07 07:55 | NUR ---
WOUND VAC LOST SEAL. DRESSING REENFORCED. CONTINUED TO NOT HAVE PROPPER SEAL. WILL CONTINUE TO TROUBLE SHOOT AND CALL WET MACHINE CUTTER
[2019-01-07 08:00] VITALS: BP 144/71
--- NOTE | 2019-01-07 08:10 | NUR ---
RECEIVED NOTICE FROM [facility], REDRAW NEEDS TO BE DONE. INACCURATE LAB
[2019-01-07 08:41] LABS: BUN/Creatinine Ratio 26.5; Calcium 7.1 mg/dL (8.5-10.1); Potassium 3.9 mmol/L (3.5-5.1)
[2019-01-07 08:48] VITALS: BP 144/71
[2019-01-07] MEDS: FAMOTIDINE 20 MG TAB PO SCH ×2 (09:32→21:35)
[2019-01-07] MEDS: amLODIPine BESYLATE 5 MG TAB PO SCH (09:32)
--- NOTE | 2019-01-07 10:40 | NUR ---
WOUND CARE NOTE: Received a call from patient's nurse, MONROE Dillon requesting to change wound vacc dressing to patient's Rt. forearm wound per Dr. Goldsmith's order. MONROE Dillon reported that patient's Rt forearm wound is not keeping seal and not suctioning well. Patient is resting in bed in Rm. 205. He's awake, alert and oriented. He's premedicated for pain by his bedside nurse prior dressing change. Noted patient's Rt forearm wound dressing is pulled. Patient reported R handed must accidentally pulled dressing from moving. In addition, Info Vac is at pole to patient's L side. Removed Rt forearm wound dressing. Cleansed Rt forearm wound with wound cleanser. Patient's right forearm wound measuring 9x5x0.7cm. Wound bed is red with yellow adherent slough and has visible tendon. Patient is four days s/p I&D and debridement of Rt forearm wound by Dr. Franklin. Applied petroleum gauze to visible tendon to protect and skin protectant to periwound. Pack wound cavity with one piece black GranuFoam dressing, secure with transparent drape, applied trac pad on hole, connected tubings. Run wound vacc at 125mm Hg continuous. Good suction noted, no leak detected. Patient tolerated well. Canister noted with 150mL bloody purulent drainage. New photograph of wound are taken for reference. Addendum: 01/07/19 at 1536 by Thuy Petersen RN Amended: Links added.
--- NOTE | 2019-01-07 12:45 | NUR ---
called caleb with [facility] per md matamoros request . left a message awaiting response
[2019-01-07 13:00] VITALS: BP 133/65
[2019-01-07 17:00] VITALS: BP 131/56
--- NOTE | 2019-01-07 18:47 | NUR ---
END OF SHIFT NOTE PATIENT IN BED WITH EYES CLOSED CHEST RISE AND FALL VISUALIZED SHOWING NO S/S OF DISTRESS, SOB. BED IN LOWEST LOCKED POSITION CALL LIGHT WITH IN REACH. WOUND VAC HAS PROPPER SEAL. WILL ENDORSE CARE TO NOC RN
--- NOTE | 2019-01-07 19:30 | NUR ---
Patient at bedside chair alert and oriented x 4, verbally coherent, able to make needs known. Patient's respiration even and unlabored, complained of severe pain to right arm wound. Will administer pain medication as ordered. Patient's wound to right forearm with dressing clean, dry and intact. Wound vac patent suctioning moderate amount of serosanguineous drainage. Plan of care discussed, patient verbalized understanding. All needs attended, will continue to monitor.
[2019-01-07] MEDS: TEMAZEPAM 15 MG CAP PO PRN (21:37)
[2019-01-07 22:09] VITALS: BP 138/77
[2019-01-08 04:00] VITALS: BP 138/64
[2019-01-08] MEDS: SODIUM CHLORIDE 0.9% 1,000 ML IV SCH ×3 (04:28→18:20)
[2019-01-08] MEDS: VANCOMYCIN 1GM/250ML 250 ML IV SCH ×2 (05:11→18:01)
[2019-01-08] MEDS: DILTIAZEM HCL 60 MG TAB PO SCH ×3 (05:12→21:51)
--- NOTE | 2019-01-08 07:50 | NUR ---
OPENING SHIFT NOTE PATIENT LAYING IN BED WITH LEGS ON CHAIR, WHEN ASKED IF HE NEEDS ASSISTANCE TO MOVE COMPLETELY ON BED, HE STATED "NO IM COMFORTABLE LIKE THIS" PATIENT ALERT AND ORIENTED X4, LAYING WITH EYES CLOSED BUT COMMUNICATING. DENIES ANY SOB OR ANY DISTRESS. POC DISCUSSED PATIENT VERBALIZED UNDERSTANDING. OUPUT IN WOUND VAC 250ML. WOUND VAC HAS PROPPER SEAL. BED IN LOWEST LOCKED POSITION CALL LIGHT WITH IN REACH WILL CONTINUE TO MONITOR
[2019-01-08 08:00] VITALS: BP 151/78
[2019-01-08] MEDS: FAMOTIDINE 20 MG TAB PO SCH ×2 (09:21→21:51)
[2019-01-08] MEDS: amLODIPine BESYLATE 5 MG TAB PO SCH (09:21)
--- NOTE | 2019-01-08 11:26 | NUR ---
SPOKE TO ANDRESSA FROM [facility] VIA TELEPHONE. MADE AWARE PLAN IS TO DISCHARGE PATIENT TOMORROW AT 0815, PATIENT WILL BE SENT HOME WITH IV ANTIBIOTICS FOR 2 WEEKS USING HIS MIDLINE, AND A WOUND VAC.
--- NOTE | 2019-01-08 11:42 | NUR ---
WOUND CARE NOTE: Wound care in for daily monitoring of wound vac functioning. Patient continue resting in bed in Rm. 205. Wound vac dressing to Rt forearm is C/D/I. No signs of leaking or blockage noted. Info vac functioning well and at 125mm Hg continuous pressure. Approximately 375 mL of serosanguineous drainage noted in canister. Patient's Rt arm edema is much improved today in comparison to yesterday. Next dressing change scheduled for 01/10/19.Patient's daughter arrived at bedside. Patient and family education given regarding wound care/plan of care, verbalized understanding. Will continue to monitor.
[2019-01-08] MEDS ORDERED: DOCUSATE SOD 100 MG CAP PO ONE (12:15)
[2019-01-08] MEDS: HYDROcodone-ACET 5/325MG TAB PO PRN ×2 (12:17→21:53)
[2019-01-08 12:30] VITALS: BP 137/78
--- NOTE | 2019-01-08 16:00 | NUR ---
PT REPORTS THAT HE HAS BEEN WALKING BY HIMSELF IN THE ROOM.
[2019-01-08 16:59] VITALS: BP 139/61
--- NOTE | 2019-01-08 18:48 | NUR ---
END OF SHIFT NOTE PATIENT IN BED WITH EYES CLOSED, CHEST RISE AND FALL VISUALIZED. BED IN LOWEST LOCKED POSITION CALL LIGHT WITH IN REACH. ENDORSE CARE TO NOC RN
--- NOTE | 2019-01-08 19:10 | NUR ---
Opening Shift Note Assumed care of patient, awake and alert. No S/S of distress/SOB or pain. Instructed on POC and to call for assist PRN, will continue to monitor for changes Q1hr and PRN. Bed locked and in lowest position, call light within reach. Wound vac serous drainage noted. will continue to monitor
[2019-01-08] MEDS: DOCUSATE SOD 100 MG CAP PO SCH (21:50)
[2019-01-08 22:00] VITALS: BP 145/73
[2019-01-08] MEDS: TEMAZEPAM 15 MG CAP PO PRN (23:08)
[2019-01-09] MEDS: SODIUM CHLORIDE 0.9% 1,000 ML IV SCH ×3 (01:00→14:20)
[2019-01-09 04:00] VITALS: BP 135/69
[2019-01-09 04:46] LABS: Basophils # (auto) 0.1 uL; Basophils % (auto) 0.6 % (0.0-2.0); Eosinophils # (auto) 0.3 uL; Eosinophils % (auto) 1.7 % (0.0-7.0); Hemoglobin 13.4 g/dL (13.5-17.5); Lymphocytes # (auto) 3.2 uL; Lymphocytes % (auto) 16.5 % (10.0-50.0); Mean Corpuscular Hemoglobin 34.4 pg (28.0-32.0); Mean Corpuscular Hgb Conc. 34.3 g/dL (32.0-36.0); Mean Corpuscular Volume 100.3 fL (80.0-100.0); Monocytes # (auto) 2.2 uL; Monocytes % (auto) 11.5 % (0.0-12.0); Neutrophils # (auto) 13.6 uL; Neutrophils % (auto) 69.7 % (37.0-80.0); Nucleated Red Blood Cells % 0.1 %; Platelet Count (auto) 220 10^3/uL (140-450); Red Blood Cells 3.89 10^6/uL (4.5-5.90); Red Cell Distribution Width 14.9 % (11.8-14.3); White Blood Cell 19.5 10^3/uL (4.4-10.8)
[2019-01-09] MEDS: VANCOMYCIN 1GM/250ML 250 ML IV SCH ×2 (05:40→18:00)
[2019-01-09] MEDS: DILTIAZEM HCL 60 MG TAB PO SCH ×2 (05:40→14:10)
--- NOTE | 2019-01-09 06:54 | NUR ---
CLOSING NOTE PT resting no s/sx's of distress or sob noted, will endorse report to day RN
--- NOTE | 2019-01-09 07:00 | NUR ---
Opening Shift Note Assumed care of patient, awake and alert. No S/S of distress/SOB or pain. Insructed on POC and to callfor assist PRN, will continue to monitor for changes Q1hr and PRN.
[2019-01-09 08:00] VITALS: BP 135/69
--- NOTE | 2019-01-09 08:20 | NUR ---
MD DR BORREGO AT BEDSIDE DISCUSSING POC WITH PT, CONT CARE
[2019-01-09 09:00] VITALS: BP 151/84
[2019-01-09] MEDS ORDERED: LACTULOSE 20Gm/30ML SOLN PO ONE (09:30)
[2019-01-09] MEDS: DOCUSATE SOD 100 MG CAP PO SCH (10:00)
[2019-01-09] MEDS: amLODIPine BESYLATE 5 MG TAB PO SCH (10:04)
[2019-01-09] MEDS: FAMOTIDINE 20 MG TAB PO SCH (10:05)
[2019-01-09] MEDS: HYDROcodone-ACET 5/325MG TAB PO PRN ×2 (10:09→15:30)
--- NOTE | 2019-01-09 10:12 | NUR ---
MD AT BEDSIDE DISCUSSING DC PLAN WITH PT, DAUGHTER AND , DISCUSSED TX PLAN POST DC AND IMAGING RESULTS, CONT CARE
--- NOTE | 2019-01-09 10:34 | NUR ---
WOUND CARE NOTE: Wound care in for daily monitoring of wound vac functioning. Patient is resting in bed in Rm. 205. Patient's family at bedside. Wound vac dressing to Rt forearm is C/D/I. No signs of leaking or blockage noted. Info vac functioning well at at 125mm Hg continuous pressure. Approximately 400 mL of serosanguineous drainage noted in canister. Patient and family reeducated regarding wound care/plan of care, verbalized understanding. Patient has discharge order,awaiting delivery of home wound vac.
--- NOTE | 2019-01-09 11:49 | NUR ---
I called patient's daughter Lynn, she said she is okay with the current infusion company [facility]-she said she has her own IV pole and was under the impression that the 40$/day co-pay was just for the IV pole. I called [employer] and spoke with Honey-she is going to call patient's daughter again and explain that the co-pay is for the tubing and flushes, not the IV pole-Honey to give me a call back after she speaks with daughter.
--- NOTE | 2019-01-09 12:22 | NUR ---
I received a message from Honey at [facility], she spoke with daughter Lynn regarding the co-pay and she is agreeable-delivery time set up for 8-10pm this evening.
--- NOTE | 2019-01-09 12:26 | NUR ---
I spoke with [facility]-he is aware that patient is discharging home today, they will visit patient tomorrow for wound care and IV ATB.
[2019-01-09 13:00] VITALS: BP_SYST 140; BP_SYST 182; BP_DIAS 71; BP_DIAS 75
--- NOTE | 2019-01-09 16:59 | NUR ---
[facility] spoke with Honey and pt will have a co pay she called Pt daughter to informed and Pt daughter Lynn agree to the cost. Per Honey medication will be deliver today. Contacted [facility] Ph: ( [phone]) Fax: ( [phone]) faxed medical records. Per Dena Wound vac was approved and it will be deliver at bed side. Per Dena from [facility] she would call back with a time at 13:00 however did not received a call back. Follow up and Called [facility] again Per Sherrell from [facility] wound vac will be deliver today and will call MONROE Sanches to informed her of time. Per Sherrell provided me with a confirmation number [id number]. Informed Fiber Glass Worker Britney. Per Fiber Glass Worker Britney she will informed MONROE Sanches and provide her with information about the infusion company and wound vac company.
[2019-01-09 17:00] VITALS: BP 166/120
[2019-01-09] MEDS ORDERED: ALPRAZolam 0.5 MG TAB PO PRN (17:00)
[2019-01-09] MEDS ORDERED: cloNIDine HCL 0.1 MG TAB PO PRN (17:00)
--- NOTE | 2019-01-09 17:02 | NUR ---
I spoke with nurse Sanches and provided her with contact information for [facility] [phone] and [facility] [phone] as well as [facility] [phone] ([facility] to call nurse with ETA for wound vac).
--- NOTE | 2019-01-09 17:07 | NUR ---
SPOKE WITH ARTIS LICONA) CONFIRMED INFUSION DELIVERY FOR TONIGHT [facility] [phone] [facility] WOUND VAC [phone]
--- NOTE | 2019-01-09 18:24 | NUR ---
[place] SPOKE WITH JUAN ALBERTO, STATES WOUND VAC IS IN ROUTE, CONT CARE
[2019-01-09 18:38] VITALS: BP 167/110
--- NOTE | 2019-01-09 18:58 | NUR ---
[facility] DELIVERED WOUND VAC TO BEDSIDE ONCOMING RN WAS UPDATED
--- NOTE | 2019-01-09 20:11 | NUR ---
patient discharged with d/c instructions.
[2019-01-11] MEDS ORDERED: AMLO10TA13 PO (21:36)
[2019-01-11] MEDS ORDERED: HYDR-4833 PO (21:36)
[2019-01-11] MEDS ORDERED: DILT30TA24 PO (21:36)
== END 2019-01-09 20:00 | disposition home health service (06) | DRG 853 ==
LOC: ER 16:15 → OVERFLOW 16:16 → WEST WING 21:39 → TELE-WESTW 01-01 22:10 → ICU WEST 01-02 06:16 → DOU IN ICU 01-02 23:17 → TELE-CENTR 01-04 18:20
PROVIDERS: ADMIT Nurse Practitioner; ATTEND Family Medicine
PROC: 0JBG0ZZ Excision of Right Lower Arm Subcutaneous Tissue and Fascia, Open Approach (ICD-10-PCS; principal; 2019-01-03 14:23)
DX: A41.9 Sepsis, unspecified organism (principal); R65.21 Severe sepsis with septic shock; E43 Unspecified severe protein-calorie malnutrition; L03.113 Cellulitis of right upper limb; E87.1 Hypo-osmolality and hyponatremia; I47.1 Supraventricular tachycardia; L02.413 Cutaneous abscess of right upper limb; N17.9 Acute kidney failure, unspecified; E87.5 Hyperkalemia; D72.823 Leukemoid reaction; I48.91 Unspecified atrial fibrillation; E86.0 Dehydration; F17.210 Nicotine dependence, cigarettes, uncomplicated; D75.89 Other specified diseases of blood and blood-forming organs; F12.10 Cannabis abuse, uncomplicated; F15.10 Other stimulant abuse, uncomplicated; Z86.14 Personal history of Methicillin resistant Staphylococcus aureus infection; Z68.27 Body mass index [BMI] 27.0-27.9, adult; Z88.0 Allergy status to penicillin
CPT/HCPCS: 36415; 71045; 73200; 76700; 80048; 80053; 80202; 80307; 81001; 82565; 83605; 84484; 85007; 85025; 85027; 85610; 85730; 86704; 86706; 86708; 86803; 86850; 86900; 86901; 87040; 87070; 87075; 87077; 87081; 87186; 87205; 87340; 90715; 93005; 93306; 93971; 96361; 96365; 96367; 96375; G0378; J0153; J0690; J0696; J1100; J1956; J2250; J2405; J2704; J7060

== ENCOUNTER → 2019-02-23 | Outpatient (CLI) | payer MEDICARE ==
[~2019-02-23] MED LIST: AMLO10TA13 PO; DILT30TA24 PO; HYDR-4833 PO
[2019-02-23 12:16] LABS: Potassium 3.9 mmol/L (3.5-5.1)
[2019-02-23 12:38] LABS: Calcium 7.9 mg/dL (8.5-10.1)
== END | disposition home or self-care (01) ==
LOC: LAB 10:20
PROVIDERS: ATTEND Internal Medicine
DX: Z12.5 Encounter for screening for malignant neoplasm of prostate (principal); K70.31 Alcoholic cirrhosis of liver with ascites; K70.11 Alcoholic hepatitis with ascites; B18.2 Chronic viral hepatitis C; E87.6 Hypokalemia; I11.0 Hypertensive heart disease with heart failure; I50.30 Unspecified diastolic (congestive) heart failure; N40.0 Benign prostatic hyperplasia without lower urinary tract symptoms; F41.9 Anxiety disorder, unspecified; D53.9 Nutritional anemia, unspecified; R79.89 Other specified abnormal findings of blood chemistry
CPT/HCPCS: 36415; 80048; 80061; 82306; 83036; 84153; 84443

== ENCOUNTER → 2019-03-14 | Outpatient (CLI) | payer MEDICARE ==
[2019-03-14 11:18] LABS: Basophils # (auto) 0.1 uL; Basophils % (auto) 1.2 % (0.0-2.0); Eosinophils # (auto) 0.2 uL; Eosinophils % (auto) 2.6 % (0.0-7.0); Hematocrit 38.9 % (41.0-53.0); Lymphocytes # (auto) 1.9 uL; Mean Corpuscular Hemoglobin 33.7 pg (28.0-32.0); Mean Corpuscular Hgb Conc. 33.5 g/dL (32.0-36.0); Mean Corpuscular Volume 100.6 fL (80.0-100.0); Monocytes # (auto) 0.7 uL; Monocytes % (auto) 10.8 % (0.0-12.0); Neutrophils # (auto) 3.6 uL; Neutrophils % (auto) 56.4 % (37.0-80.0); Nucleated Red Blood Cells % 0.1 %; Platelet Count (auto) 322 10^3/uL (140-450); Red Blood Cells 3.86 10^6/uL (4.5-5.90); Red Cell Distribution Width 15.4 % (11.8-14.3); White Blood Cell 6.5 10^3/uL (4.4-10.8)
[2019-03-14 11:32] LABS: INR 1.12 (0.9-1.15)
--- NOTE | 2019-03-14 13:15 | NUR ---
PT IN ULTRASOUND FOR A PARACENTESIS . VS 138/90-75-16-92%. 1339: 155/63-82-16-98%. 1345:168/89-90-98%. 1400: 168/93-92-17-97%. 1420: 165/90-91-16-98%. FINISHED WITH PROCEDURE. PT TOLERATED PROCEDURE WELL. 6800 ML OF FLUID REMOVED. ACI GIVEN AND SENT HOME IN GOOD CONDITION.
== END | disposition home or self-care (01) ==
LOC: US 08:58
PROVIDERS: ATTEND Internal Medicine
DX: K70.31 Alcoholic cirrhosis of liver with ascites (principal); I11.0 Hypertensive heart disease with heart failure; I50.9 Heart failure, unspecified; F41.9 Anxiety disorder, unspecified; Z87.891 Personal history of nicotine dependence; Z88.0 Allergy status to penicillin; Z91.030 Bee allergy status
CPT/HCPCS: 36415; 49083; 85025; 85610; C1729; 10022; 76942

== ENCOUNTER → 2019-04-11 | Outpatient (CLI) | payer MEDICARE ==
[2019-04-11 13:14] LABS: Albumin 2.4 g/dL (3.4-5.0); Calcium 7.9 mg/dL (8.5-10.1); Potassium 3.8 mmol/L (3.5-5.1)
[2019-04-11 13:18] LABS: BUN/Creatinine Ratio 16.3; Bilirubin, Total 0.7 mg/dL (0.2-1.0); Total Protein 7.5 g/dL (6.4-8.2)
== END | disposition home or self-care (01) ==
LOC: LAB 12:29
PROVIDERS: ATTEND Internal Medicine Gastroenterology
DX: K74.60 Unspecified cirrhosis of liver (principal); B18.2 Chronic viral hepatitis C
CPT/HCPCS: 36415; 80053

== ENCOUNTER → 2019-04-18 | Outpatient (CLI) | payer MEDICARE ==
[2019-04-18 12:14] LABS: Calcium 8.3 mg/dL (8.5-10.1)
[2019-04-18 12:18] LABS: BUN/Creatinine Ratio 13.9
== END | disposition home or self-care (01) ==
LOC: LAB 11:38
PROVIDERS: ATTEND Internal Medicine
DX: K70.31 Alcoholic cirrhosis of liver with ascites (principal); B18.2 Chronic viral hepatitis C
CPT/HCPCS: 36415; 80048

== ENCOUNTER → 2019-05-01 | Outpatient (CLI) | payer MEDICARE ==
[2019-05-01 16:12] LABS: Basophils # (auto) 0.1 uL; Eosinophils # (auto) 0.2 uL; Eosinophils % (auto) 3.4 % (0.0-7.0); Hematocrit 40.5 % (41.0-53.0); Hemoglobin 13.8 g/dL (13.5-17.5); Lymphocytes # (auto) 2.1 uL; Lymphocytes % (auto) 33.3 % (10.0-50.0); Mean Corpuscular Hemoglobin 33.9 pg (28.0-32.0); Mean Corpuscular Hgb Conc. 34.1 g/dL (32.0-36.0); Mean Corpuscular Volume 99.4 fL (80.0-100.0); Monocytes # (auto) 0.8 uL; Monocytes % (auto) 13.3 % (0.0-12.0); Neutrophils # (auto) 3.1 uL; Nucleated Red Blood Cells % 0.2 %; Platelet Count (auto) 275 10^3/uL (140-450); Red Blood Cells 4.07 10^6/uL (4.5-5.90); Red Cell Distribution Width 14.4 % (11.8-14.3); White Blood Cell 6.4 10^3/uL (4.4-10.8)
[2019-05-01 16:21] LABS: INR 1.17 (0.9-1.15); Partial Thromboplastin Time 30.2 sec (23.64-32.05)
== END | disposition home or self-care (01) ==
LOC: LAB 15:43
PROVIDERS: ATTEND Internal Medicine Gastroenterology
DX: Z01.812 Encounter for preprocedural laboratory examination (principal); F41.9 Anxiety disorder, unspecified; I11.0 Hypertensive heart disease with heart failure; I50.9 Heart failure, unspecified; Z87.891 Personal history of nicotine dependence; Z88.0 Allergy status to penicillin; Z91.030 Bee allergy status
CPT/HCPCS: 36415; 85025; 85610; 85730

== ENCOUNTER → 2019-05-03 | Outpatient (CLI) | payer MEDICARE ==
--- NOTE | 2019-05-03 10:45 | NUR ---
PT IN ULTRASOUND FOR A PARACENTESIS BY DR LINN. VSS 157/87-86-17-95%. 1100: 162/94-89-16-98%. 1115: 158/96-87-17-98%. 1130: 158/86-88-16-99%. 1150: 161/91-85-16-98%. FINISHED WITH PROCEDURE. 8450 ML OF ASCITES FLUID REMOVED. PT WHEELED OUT TO CAR WITH FRIEND DRIVING HIM HOME.
== END | disposition home or self-care (01) ==
LOC: US 09:44
PROVIDERS: ATTEND Internal Medicine Gastroenterology
DX: K70.31 Alcoholic cirrhosis of liver with ascites (principal); Z88.0 Allergy status to penicillin; Z91.030 Bee allergy status; Z98.890 Other specified postprocedural states
CPT/HCPCS: 49083; C1729; 10022; 76942

== ENCOUNTER → 2019-06-12 | Outpatient (CLI) | payer OTHER, MEDICAID ==
[2019-06-12 14:16] LABS: Basophils # (auto) 0 uL; Basophils % (auto) 0.6 % (0.0-2.0); Eosinophils # (auto) 0.1 uL; Eosinophils % (auto) 2.1 % (0.0-7.0); Hematocrit 39.1 % (41.0-53.0); Hemoglobin 13.2 g/dL (13.5-17.5); Lymphocytes # (auto) 1.7 uL; Lymphocytes % (auto) 28.5 % (10.0-50.0); Mean Corpuscular Hemoglobin 33.5 pg (28.0-32.0); Mean Corpuscular Hgb Conc. 33.7 g/dL (32.0-36.0); Mean Corpuscular Volume 99.5 fL (80.0-100.0); Monocytes # (auto) 0.8 uL; Monocytes % (auto) 12.8 % (0.0-12.0); Neutrophils # (auto) 3.4 uL; Platelet Count (auto) 264 10^3/uL (140-450); Red Blood Cells 3.93 10^6/uL (4.5-5.90)
[2019-06-12 14:35] LABS: Albumin 2.5 g/dL (3.4-5.0); BUN/Creatinine Ratio 14.5; Potassium 3.4 mmol/L (3.5-5.1)
[2019-06-12 14:38] LABS: Bilirubin, Total 0.7 mg/dL (0.2-1.0); Total Protein 7.9 g/dL (6.4-8.2)
[2019-06-12 15:13] LABS: INR 1.22 (0.9-1.15)
== END | disposition home or self-care (01) ==
LOC: LAB 14:07
PROVIDERS: ATTEND Internal Medicine Gastroenterology
DX: K70.31 Alcoholic cirrhosis of liver with ascites (principal); B18.2 Chronic viral hepatitis C
CPT/HCPCS: 36415; 80053; 85025; 85610

== ENCOUNTER 2019-07-06 07:00 | Emergency (ER) | payer OTHER, MEDICAID ==
[~2019-07-06] VITALS: Ht 177.8 cm; Wt 74.8 kg
[~2019-07-06 07:00] MED LIST changes: -AMLO10TA13 PO; -DILT30TA24 PO; +FURO40TA4 PO; +PROP20TA73 PO; +SPIR25TA88 PO
[2019-07-06] MEDS ORDERED: FUROSEMIDE 20 MG TAB PO ONE (07:30)
[2019-07-06 07:52] VITALS: BP 116/63
[2019-07-06 08:02] LABS: Hematocrit 35.9 % (41.0-53.0); Hemoglobin 12.1 g/dL (13.5-17.5); Mean Corpuscular Hgb Conc. 33.6 g/dL (32.0-36.0); Mean Corpuscular Volume 98.4 fL (80.0-100.0); Platelet Count (auto) 208 10^3/uL (140-450); Red Blood Cells 3.65 10^6/uL (4.5-5.90); Red Cell Distribution Width 14.5 % (11.8-14.3); White Blood Cell 3.9 10^3/uL (4.4-10.8)
[2019-07-06 08:07] LABS: Basophils % (manual) 0 (0.0-2.0); Blast Cells 0; Metamyelocytes % 0; Myelocytes % 0; Promyelocytes % 0; Reactive Lymphocytes 0
[2019-07-06 08:17] LABS: Albumin 2.5 g/dL (3.4-5.0); Anion Gap 9 (5-15); BUN/Creatinine Ratio 21.7; Blood Urea Nitrogen 15 mg/dL (7-18); Calcium 7.7 mg/dL (8.5-10.1); Carbon Dioxide 24 mmol/L (21-32); Chloride 103 mmol/L (98-107); GFR African American 148 mL/min; GFR Non-African American 122 mL/min; Glucose 96 mg/dL (74-106); Potassium 3.8 mmol/L (3.5-5.1); Sodium 136 mmol/L (136-145)
[2019-07-06 08:22] LABS: Alanine Aminotransferase 41 U/L (16-61); Alkaline Phosphatase 147 U/L (45-117); Aspartate Aminotransferase 77 U/L (15-37); Bilirubin, Total 0.4 mg/dL (0.2-1.0); Total Protein 6.6 g/dL (6.4-8.2)
[2019-07-06 08:39] LABS: Band Neutrophils % (manual) 2; Eosinophils % (manual) 3 (0-7); Lymphocytes % (manual) 24 (10.0-50.0); Monocytes % (manual) 21 (0-12)
== END 2019-07-06 10:34 | disposition home or self-care (01) ==
LOC: ER 07:00
DX: K76.9 Liver disease, unspecified (principal); R14.0 Abdominal distension (gaseous); I10 Essential (primary) hypertension; Z88.0 Allergy status to penicillin
CPT/HCPCS: 36415; 80053; 84484; 85007; 85027; 93005

== ENCOUNTER 2020-11-15 02:47 | Emergency (ER) | payer OTHER, MEDICAID ==
[~2020-11-15] VITALS: Ht 177.8 cm; Wt 72.6 kg
[2020-11-15 02:47] VITALS: BP 146/72
[~2020-11-15 02:47] MED LIST changes: +SPIR25TA PO; -SPIR25TA88 PO
[2020-11-15] MEDS ORDERED: KETOROLAC TROMETH 60MG/2ML VIAL IM ONE (05:30)
== END 2020-11-15 05:45 | disposition home or self-care (01) ==
LOC: ER 02:47
DX: K40.90 Unilateral inguinal hernia, without obstruction or gangrene, not specified as recurrent (principal); N30.90 Cystitis, unspecified without hematuria; I10 Essential (primary) hypertension; F17.210 Nicotine dependence, cigarettes, uncomplicated; Z90.49 Acquired absence of other specified parts of digestive tract; Z88.0 Allergy status to penicillin; Z79.899 Other long term (current) drug therapy
CPT/HCPCS: 74176; 96372; 99284; J1885

== ENCOUNTER 2021-03-14 15:46 | Inpatient (IN) | payer OTHER, MEDICAID ==
[~2021-03-14] VITALS: Ht 177.8 cm; Wt 72.0 kg
[2021-03-14 16:20] LABS: Basophils # (auto) 0 10 ^3/uL (0-0.2); Basophils % (auto) 0.6 % (0.0-2.0); Eosinophils # (auto) 0.3 10 ^3/uL (0-0.8); Eosinophils % (auto) 4.7 % (0.0-7.0); Hematocrit 31.3 % (41.0-53.0); Hemoglobin 10.3 g/dL (13.5-17.5); Lymphocytes # (auto) 2.4 10 ^3/uL (0.4-5.4); Lymphocytes % (auto) 37.3 % (10.0-50.0); Mean Corpuscular Volume 96.8 fL (80.0-100.0); Monocytes # (auto) 0.9 10 ^3/uL (0-1.3); Monocytes % (auto) 13.7 % (0.0-12.0); Neutrophils # (auto) 2.9 10 ^3/uL (1.6-8.6); Neutrophils % (auto) 43.7 % (37.0-80.0); Nucleated Red Blood Cells % 0.2 %; Red Blood Cells 3.23 10^6/uL (4.5-5.90); Red Cell Distribution Width 17.5 % (11.8-14.3); White Blood Cell 6.6 10^3/uL (4.4-10.8)
[2021-03-14 16:27] LABS: Albumin 2.2 g/dL (3.4-5.0); Anion Gap 9 (5-15); Blood Urea Nitrogen 14 mg/dL (7-18); Calcium 7.8 mg/dL (8.5-10.1); Carbon Dioxide 22 mmol/L (21-32); Chloride 104 mmol/L (98-107); Glucose 108 mg/dL (74-106); Potassium 3.9 mmol/L (3.5-5.1); Sodium 135 mmol/L (136-145)
[2021-03-14 16:28] LABS: INR 1.29 (0.9-1.15)
[2021-03-14 16:32] LABS: Alanine Aminotransferase 66 U/L (16-61); Alkaline Phosphatase 184 U/L (45-117); Aspartate Aminotransferase 117 U/L (15-37); BUN/Creatinine Ratio 14.3; Bilirubin, Total 0.7 mg/dL (0.2-1.0); GFR African American 98 mL/min; GFR Non-African American 81 mL/min
[2021-03-14 19:34] LABS: Urine Bacteria NONE SEEN /hpf (None Seen); Urine Blood Negative /uL (Negative); Urine Mucus FEW (None Seen); Urine Specific Gravity 1.011 (1.001-1.035); Urine WBC 1 /hpf (0 - 3)
[2021-03-15] MEDS ORDERED: ALBUMIN 25% 50 ML IV ONE (00:30)
[2021-03-15] MEDS ORDERED: ONDANSETRON HCL 4 MG/2 ML VIAL IV PRN (00:30)
[2021-03-15] MEDS ORDERED: MORPHINE SULFATE INJECTION 2 MG/ML SYRG IV PRN (00:30)
[2021-03-15] MEDS ORDERED: NITROGLYCERIN 0.4 MG SL TAB SL PRN (00:30)
[2021-03-15] MEDS ORDERED: DOCUSATE SOD 100 MG CAP PO PRN (00:30)
[2021-03-15] MEDS: SODIUM CHLORIDE 0.9% 1,000 ML IV SCH ×2 (01:30→08:03)
[2021-03-15 04:34] LABS: Basophils # (auto) 0.1 10 ^3/uL (0-0.2); Basophils % (auto) 1.3 % (0.0-2.0); Eosinophils # (auto) 0.3 10 ^3/uL (0-0.8); Eosinophils % (auto) 6.1 % (0.0-7.0); Hematocrit 31.2 % (41.0-53.0); Hemoglobin 10.5 g/dL (13.5-17.5); Lymphocytes # (auto) 2.1 10 ^3/uL (0.4-5.4); Lymphocytes % (auto) 37.9 % (10.0-50.0); Mean Corpuscular Hemoglobin 32.9 pg (28.0-32.0); Mean Corpuscular Hgb Conc. 33.8 g/dL (32.0-36.0); Mean Corpuscular Volume 97.3 fL (80.0-100.0); Monocytes # (auto) 0.9 10 ^3/uL (0-1.3); Monocytes % (auto) 16.1 % (0.0-12.0); Neutrophils # (auto) 2.2 10 ^3/uL (1.6-8.6); Neutrophils % (auto) 38.6 % (37.0-80.0); Red Cell Distribution Width 17.2 % (11.8-14.3); White Blood Cell 5.6 10^3/uL (4.4-10.8)
[2021-03-15 04:49] LABS: INR 1.38 (0.9-1.15); Partial Thromboplastin Time 32.5 sec (23.6-33.0)
[2021-03-15 04:52] LABS: Potassium 3.9 mmol/L (3.5-5.1)
[2021-03-15 05:01] LABS: Albumin 2.2 g/dL (3.4-5.0); BUN/Creatinine Ratio 16.2; Calcium 7.8 mg/dL (8.5-10.1); Total Protein 6.5 g/dL (6.4-8.2)
[2021-03-15] MEDS: SPIRONOLACTONE 25 MG TAB PO SCH ×2 (06:13→18:54)
[2021-03-15] MEDS: SUCRALFATE 1 GM TAB PO SCH ×4 (08:04→21:03)
[2021-03-15] MEDS: ZINC SULFATE 220mg CAP or TAB PO SCH (10:20)
[2021-03-15] MEDS: ASCORBIC ACID 500 MG TAB PO SCH ×2 (10:20→21:03)
[2021-03-15] MEDS: MULTIPLE VITAMIN TAB PO SCH (10:20)
[2021-03-15] MEDS: FUROSEMIDE 40 MG/4 ML VIAL IV SCH (12:27)
[2021-03-15 17:33] VITALS: BP 122/54
[2021-03-15] MEDS ORDERED: PNEUMOCOCCAL VACC POLYS 25 MCG/0.5 ML VIAL IM ONE (20:00)
[2021-03-15] MEDS: PANTOPRAZOLE 40 MG/10 ML VIAL INJ IV SCH (21:03)
[2021-03-15] MEDS: HYDROcodone-ACET 5/325MG TAB PO PRN (21:18)
[2021-03-15 22:00] VITALS: BP 121/61
[2021-03-16 05:00] VITALS: BP 105/51
[2021-03-16 05:52] LABS: Basophils # (auto) 0 10 ^3/uL (0-0.2); Basophils % (auto) 0.6 % (0.0-2.0); Eosinophils # (auto) 0.4 10 ^3/uL (0-0.8); Eosinophils % (auto) 5.7 % (0.0-7.0); Hematocrit 31.1 % (41.0-53.0); Hemoglobin 10.6 g/dL (13.5-17.5); Lymphocytes # (auto) 2.5 10 ^3/uL (0.4-5.4); Mean Corpuscular Hemoglobin 33.4 pg (28.0-32.0); Mean Corpuscular Hgb Conc. 34.2 g/dL (32.0-36.0); Mean Corpuscular Volume 97.8 fL (80.0-100.0); Monocytes % (auto) 14.9 % (0.0-12.0); Neutrophils # (auto) 2.7 10 ^3/uL (1.6-8.6); Neutrophils % (auto) 40.8 % (37.0-80.0); Nucleated Red Blood Cells % 0.3 %; Red Blood Cells 3.18 10^6/uL (4.5-5.90); Red Cell Distribution Width 17.4 % (11.8-14.3); White Blood Cell 6.6 10^3/uL (4.4-10.8)
[2021-03-16] MEDS: SPIRONOLACTONE 25 MG TAB PO SCH ×2 (05:58→18:24)
[2021-03-16 06:20] LABS: Potassium 4.1 mmol/L (3.5-5.1)
[2021-03-16] MEDS: SUCRALFATE 1 GM TAB PO SCH ×4 (06:32→22:51)
[2021-03-16 06:37] LABS: Albumin 2.1 g/dL (3.4-5.0); BUN/Creatinine Ratio 18.9; Calcium 7.7 mg/dL (8.5-10.1); Total Protein 6.5 g/dL (6.4-8.2)
[2021-03-16 08:00] VITALS: BP 94/56
[2021-03-16] MEDS: MULTIPLE VITAMIN TAB PO SCH (08:59)
[2021-03-16] MEDS: ASCORBIC ACID 500 MG TAB PO SCH ×2 (08:59→22:52)
[2021-03-16] MEDS: FUROSEMIDE 40 MG/4 ML VIAL IV SCH (08:59)
[2021-03-16] MEDS: ZINC SULFATE 220mg CAP or TAB PO SCH (08:59)
[2021-03-16] MEDS: PANTOPRAZOLE 40 MG/10 ML VIAL INJ IV SCH ×2 (08:59→22:51)
[2021-03-16 09:00] VITALS: BP 94/56
[2021-03-16] MEDS: HYDROcodone-ACET 5/325MG TAB PO PRN ×2 (09:00→22:56)
[2021-03-16] MEDS: FOLIC ACID 1 MG, MULTIPLE VITAMIN 10 ML, MAGNESIUM SULF SDV 50% 8 MEQ, THIAMINE INJ 100... INJ SCH ×5 (12:05)
[2021-03-16 13:00] VITALS: BP 111/68
[2021-03-16] MEDS: chlordiazePOXIDE HCL 25 MG CAP PO SCH ×2 (15:07→22:51)
[2021-03-16 17:05] VITALS: BP 98/49
[2021-03-16] MEDS: TAMSULOSIN HYDROCHLORIDE 0.4 MG CAP PO SCH (18:24)
[2021-03-16] MEDS: LACTULOSE 20Gm/30ML SOLN PO SCH (22:51)
[2021-03-17 05:02] VITALS: BP 101/61
[2021-03-17] MEDS: chlordiazePOXIDE HCL 25 MG CAP PO SCH ×3 (06:00→22:09)
[2021-03-17] MEDS: SPIRONOLACTONE 25 MG TAB PO SCH ×2 (06:00→17:58)
[2021-03-17] MEDS: SUCRALFATE 1 GM TAB PO SCH ×4 (06:19→22:10)
[2021-03-17 08:00] VITALS: BP 94/56
[2021-03-17 09:00] VITALS: BP 93/57
[2021-03-17] MEDS: ASCORBIC ACID 500 MG TAB PO SCH ×2 (10:00→22:09)
[2021-03-17] MEDS: ZINC SULFATE 220mg CAP or TAB PO SCH (10:00)
[2021-03-17] MEDS: MULTIPLE VITAMIN TAB PO SCH (10:00)
[2021-03-17] MEDS ORDERED: LIDOCAINE VISCOUS 2% 15ML UD ONE (11:10)
[2021-03-17] MEDS ORDERED: SODIUM CHLORIDE LOCK 10 ML ONE (11:10)
[2021-03-17] MEDS ORDERED: diphenhdrAMINE HCL 50 MG/1 ML VL ONE (11:10)
[2021-03-17] MEDS: FUROSEMIDE 40 MG/4 ML VIAL IV SCH (11:22)
[2021-03-17] MEDS: LACTULOSE 20Gm/30ML SOLN PO SCH ×2 (11:23→22:09)
[2021-03-17] MEDS: PANTOPRAZOLE 40 MG/10 ML VIAL INJ IV SCH ×2 (11:23→22:10)
[2021-03-17 13:00] VITALS: BP 99/57
[2021-03-17] MEDS: FOLIC ACID 1 MG, MULTIPLE VITAMIN 10 ML, MAGNESIUM SULF SDV 50% 8 MEQ, THIAMINE INJ 100... INJ SCH ×5 (13:26)
[2021-03-17] MEDS: MIDAZOLAM HCL 5 MG/ML-1ML VIAL ONE ×3 (14:59→15:08)
[2021-03-17] MEDS: fentaNYL CITRATE 100 MCG/2 ML VL ONE ×3 (14:59→15:08)
[2021-03-17 17:00] VITALS: BP 122/53
[2021-03-17] MEDS: TAMSULOSIN HYDROCHLORIDE 0.4 MG CAP PO SCH (17:58)
[2021-03-17] MEDS: HYDROcodone-ACET 5/325MG TAB PO PRN (22:28)
[2021-03-18 05:00] VITALS: BP 128/72
[2021-03-18] MEDS: SPIRONOLACTONE 25 MG TAB PO SCH (06:01)
[2021-03-18] MEDS: chlordiazePOXIDE HCL 25 MG CAP PO SCH ×2 (06:01→14:52)
[2021-03-18 06:16] LABS: Basophils # (auto) 0 10 ^3/uL (0-0.2); Basophils % (auto) 0.6 % (0.0-2.0); Eosinophils # (auto) 0.1 10 ^3/uL (0-0.8); Eosinophils % (auto) 1.6 % (0.0-7.0); Hematocrit 32.6 % (41.0-53.0); Hemoglobin 11.2 g/dL (13.5-17.5); Lymphocytes # (auto) 1.7 10 ^3/uL (0.4-5.4); Lymphocytes % (auto) 20.3 % (10.0-50.0); Mean Corpuscular Hemoglobin 33.6 pg (28.0-32.0); Mean Corpuscular Hgb Conc. 34.4 g/dL (32.0-36.0); Mean Corpuscular Volume 97.6 fL (80.0-100.0); Monocytes # (auto) 0.9 10 ^3/uL (0-1.3); Monocytes % (auto) 10.8 % (0.0-12.0); Neutrophils # (auto) 5.6 10 ^3/uL (1.6-8.6); Neutrophils % (auto) 66.7 % (37.0-80.0); Nucleated Red Blood Cells % 0.1 %; Red Blood Cells 3.34 10^6/uL (4.5-5.90); Red Cell Distribution Width 16.9 % (11.8-14.3); White Blood Cell 8.5 10^3/uL (4.4-10.8)
[2021-03-18] MEDS: SUCRALFATE 1 GM TAB PO SCH ×2 (06:40→11:30)
[2021-03-18] MEDS: HYDROcodone-ACET 5/325MG TAB PO PRN (08:49)
[2021-03-18 09:00] VITALS: BP 153/75
[2021-03-18] MEDS: PANTOPRAZOLE 40 MG/10 ML VIAL INJ IV SCH (09:27)
[2021-03-18] MEDS: LACTULOSE 20Gm/30ML SOLN PO SCH (09:27)
[2021-03-18] MEDS: FUROSEMIDE 40 MG/4 ML VIAL IV SCH (09:27)
[2021-03-18] MEDS: MULTIPLE VITAMIN TAB PO SCH (09:28)
[2021-03-18] MEDS: ZINC SULFATE 220mg CAP or TAB PO SCH (09:28)
[2021-03-18] MEDS: ASCORBIC ACID 500 MG TAB PO SCH (09:28)
[2021-03-18 11:46] VITALS: BP 153/75
[2021-03-18 13:00] VITALS: BP 129/69
[2021-03-18] MEDS: FOLIC ACID 1 MG, MULTIPLE VITAMIN 10 ML, MAGNESIUM SULF SDV 50% 8 MEQ, THIAMINE INJ 100... INJ SCH ×5 (15:11)
== END 2021-03-18 17:00 | disposition home or self-care (01) | DRG 432 ==
LOC: ER 15:47 → OVERFLOW 03-15 00:24 → WEST WING 03-15 18:23 → EAST 03-17 21:18
PROVIDERS: ADMIT Nurse Practitioner Family; ATTEND Family Medicine
PROC: 06L38CZ Occlusion of Esophageal Vein with Extraluminal Device, Via Natural or Artificial Opening Endoscopic (ICD-10-PCS; principal; 2021-03-17 14:40)
PROC: 0W9G3ZZ Drainage of Peritoneal Cavity, Percutaneous Approach (ICD-10-PCS; 2021-03-18)
DX: K70.31 Alcoholic cirrhosis of liver with ascites (principal); U07.1 COVID-19; I85.11 Secondary esophageal varices with bleeding; D62 Acute posthemorrhagic anemia; J90 Pleural effusion, not elsewhere classified; F17.210 Nicotine dependence, cigarettes, uncomplicated; N32.0 Bladder-neck obstruction; F41.9 Anxiety disorder, unspecified; N30.90 Cystitis, unspecified without hematuria; N40.0 Benign prostatic hyperplasia without lower urinary tract symptoms; E88.09 Other disorders of plasma-protein metabolism, not elsewhere classified; K52.9 Noninfective gastroenteritis and colitis, unspecified; I10 Essential (primary) hypertension; K40.20 Bilateral inguinal hernia, without obstruction or gangrene, not specified as recurrent; Z80.3 Family history of malignant neoplasm of breast; Z82.49 Family history of ischemic heart disease and other diseases of the circulatory system; Z89.512 Acquired absence of left leg below knee; Z79.899 Other long term (current) drug therapy; Z80.1 Family history of malignant neoplasm of trachea, bronchus and lung; Z88.0 Allergy status to penicillin; Z91.030 Bee allergy status; Z90.49 Acquired absence of other specified parts of digestive tract
CPT/HCPCS: 36415; 71045; 74176; 76942; 80053; 81001; 82140; 84154; 84484; 85025; 85610; 85730; 86850; 86900; 86901; 87426; 96361; 96365; 96375; C9113; G0378; J2250

== ENCOUNTER 2021-03-14 18:33 | Emergency (ER) | payer OTHER | END 2021-03-15 17:29 | disposition left against medical advice (07) | LOC: ER 18:33 | DX: K92.1 Melena (principal); Z53.21 Procedure and treatment not carried out due to patient leaving prior to being seen by health care provider ==

== ENCOUNTER → 2021-03-14 | Outpatient (CLI) | payer OTHER ==
[2021-03-14 09:33] LABS: BUN/Creatinine Ratio 18.8; Calcium 8.1 mg/dL (8.5-10.1); Potassium 4.2 mmol/L (3.5-5.1)
== END | disposition home or self-care (01) ==
LOC: LAB 08:51
PROVIDERS: ATTEND Internal Medicine
DX: K70.31 Alcoholic cirrhosis of liver with ascites (principal)
CPT/HCPCS: 36415; 80048

== ENCOUNTER 2021-04-05 23:30 | Inpatient (IN) | payer OTHER, MEDICAID ==
[~2021-04-05] VITALS: Ht 177.8 cm; Wt 76.9 kg
[2021-04-06 04:19] LABS: Basophils # (auto) 0.1 10 ^3/uL (0-0.2); Basophils % (auto) 0.8 % (0.0-2.0); Eosinophils # (auto) 0.3 10 ^3/uL (0-0.8); Eosinophils % (auto) 2.8 % (0.0-7.0); Hematocrit 36.6 % (41.0-53.0); Hemoglobin 12.2 g/dL (13.5-17.5); Lymphocytes # (auto) 2.5 10 ^3/uL (0.4-5.4); Lymphocytes % (auto) 26.8 % (10.0-50.0); Mean Corpuscular Hemoglobin 31.8 pg (28.0-32.0); Mean Corpuscular Hgb Conc. 33.2 g/dL (32.0-36.0); Mean Corpuscular Volume 95.8 fL (80.0-100.0); Monocytes # (auto) 1.5 10 ^3/uL (0-1.3); Monocytes % (auto) 15.6 % (0.0-12.0); Neutrophils # (auto) 5.1 10 ^3/uL (1.6-8.6); Nucleated Red Blood Cells % 0.1 %; Red Blood Cells 3.82 10^6/uL (4.5-5.90); Red Cell Distribution Width 15.4 % (11.8-14.3); White Blood Cell 9.5 10^3/uL (4.4-10.8)
[2021-04-06 04:43] LABS: Albumin 2.2 g/dL (3.4-5.0); BUN/Creatinine Ratio 17.8; Calcium 7.9 mg/dL (8.5-10.1); Potassium 3.8 mmol/L (3.5-5.1)
[2021-04-06 04:46] LABS: Total Protein 7.3 g/dL (6.4-8.2)
[2021-04-06] MEDS ORDERED: ONDANSETRON HCL 4 MG/2 ML VIAL IV ONE (05:00)
[2021-04-06] MEDS ORDERED: HYDROmorphone HCL 2 MG/ML VL IV ONE (05:00)
[2021-04-06] MEDS ORDERED: NITROGLYCERIN 0.4 MG SL TAB SL PRN (06:15)
[2021-04-06] MEDS ORDERED: ONDANSETRON HCL 4 MG/2 ML VIAL IV PRN (06:15)
[2021-04-06] MEDS ORDERED: DOCUSATE SOD 100 MG CAP PO PRN (06:15)
[2021-04-06] MEDS ORDERED: MORPHINE SULFATE INJECTION 2 MG/ML SYRG IV PRN (06:15)
[2021-04-06] MEDS ORDERED: IBUPROFEN 100MG/5ML ORAL SUSP 100 MG/5 ML UD PO PRN (06:15)
[2021-04-06] MEDS ORDERED: HYDROcodone-ACET 5/325MG TAB PO PRN (06:15)
[2021-04-06] MEDS ORDERED: ALBUMIN 25% 100 ML IV ONE (06:15)
[2021-04-06 07:23] LABS: Albumin 1.9 g/dL (3.4-5.0); BUN/Creatinine Ratio 19.6; Calcium 7.6 mg/dL (8.5-10.1)
[2021-04-06 07:31] LABS: Bilirubin, Total 0.9 mg/dL (0.2-1.0); Total Protein 6.5 g/dL (6.4-8.2)
[2021-04-06] MEDS: HEPARIN SODIUM (PORCINE) 5000 UNITS/ML 1ML VIAL SC SCH ×2 (12:25→21:40)
[2021-04-06] MEDS: ASCORBIC ACID 500 MG TAB PO SCH ×2 (12:33→21:38)
[2021-04-06] MEDS: HYDROmorphone HCL 2 MG/ML VL IV PRN ×2 (12:33→18:58)
[2021-04-06] MEDS: FAMOTIDINE (10MG/ML) 2ML VL IV SCH (12:33)
[2021-04-06] MEDS: ZINC SULFATE 220mg CAP or TAB PO SCH (12:34)
[2021-04-06] MEDS: MULTIPLE VITAMIN TAB PO SCH (12:34)
[2021-04-06] MEDS ORDERED: TAMS0.4C36 PO (12:56)
[2021-04-06] MEDS ORDERED: SUCR1TAB22 PO (12:56)
[2021-04-06] MEDS ORDERED: FERR-7 PO (12:56)
[2021-04-06] MEDS ORDERED: LACT10SO3 PO (12:56)
[2021-04-06] MEDS ORDERED: FURO1TAB33 PO (12:56)
[2021-04-06] MEDS ORDERED: SPIR25TA PO (12:56)
[2021-04-06] MEDS ORDERED: FOLI1TAB6 PO (12:56)
[2021-04-06 13:00] VITALS: BP 113/61
[2021-04-06] MEDS: FUROSEMIDE 40 MG/4 ML VIAL IV SCH (13:19)
[2021-04-06] MEDS: SPIRONOLACTONE 25 MG TAB PO SCH (13:20)
[2021-04-06] MEDS: SODIUM CHLOR 0.9% PF (SALINE LOCK) 10ML VIAL/SYR IV SCH ×2 (14:21→21:38)
[2021-04-06 17:00] VITALS: BP 140/73
[2021-04-06 20:00] VITALS: BP 120/69
[2021-04-06 22:00] VITALS: BP 120/69
[2021-04-07 05:00] VITALS: BP 94/50
[2021-04-07] MEDS: SODIUM CHLOR 0.9% PF (SALINE LOCK) 10ML VIAL/SYR IV SCH ×2 (06:15→18:45)
[2021-04-07] MEDS ORDERED: AZTREONAM 1GM INJ 1 GM in D5W 5% 50 ML IV ONE (06:45)
[2021-04-07 07:57] LABS: Basophils # (auto) 0.1 10 ^3/uL (0-0.2); Basophils % (auto) 0.4 % (0.0-2.0); Eosinophils # (auto) 0.1 10 ^3/uL (0-0.8); Eosinophils % (auto) 0.6 % (0.0-7.0); Hematocrit 29.7 % (41.0-53.0); Hemoglobin 9.9 g/dL (13.5-17.5); Lymphocytes # (auto) 2.8 10 ^3/uL (0.4-5.4); Lymphocytes % (auto) 21.8 % (10.0-50.0); Mean Corpuscular Hemoglobin 31.8 pg (28.0-32.0); Mean Corpuscular Hgb Conc. 33.3 g/dL (32.0-36.0); Mean Corpuscular Volume 95.6 fL (80.0-100.0); Monocytes # (auto) 1.6 10 ^3/uL (0-1.3); Monocytes % (auto) 12.2 % (0.0-12.0); Neutrophils # (auto) 8.3 10 ^3/uL (1.6-8.6); Red Blood Cells 3.11 10^6/uL (4.5-5.90); Red Cell Distribution Width 15.1 % (11.8-14.3); White Blood Cell 12.8 10^3/uL (4.4-10.8)
[2021-04-07 08:18] LABS: Albumin 2.2 g/dL (3.4-5.0); Anion Gap 7 (5-15); Blood Urea Nitrogen 24 mg/dL (7-18); Calcium 7.6 mg/dL (8.5-10.1); Carbon Dioxide 24 mmol/L (21-32); Chloride 105 mmol/L (98-107); Glucose 98 mg/dL (74-106); Potassium 3.7 mmol/L (3.5-5.1); Sodium 136 mmol/L (136-145)
[2021-04-07 08:24] LABS: INR 1.33 (0.9-1.15); Partial Thromboplastin Time 34.5 sec (23.6-33.0)
[2021-04-07 08:25] LABS: Alanine Aminotransferase 46 U/L (16-61); Alkaline Phosphatase 88 U/L (45-117); Aspartate Aminotransferase 61 U/L (15-37); BUN/Creatinine Ratio 25.8; Bilirubin, Total 1.3 mg/dL (0.2-1.0); GFR African American 104 mL/min; GFR Non-African American 86 mL/min; Total Protein 6.3 g/dL (6.4-8.2)
[2021-04-07 08:28] LABS: Magnesium 2.1 mg/dL (1.6-2.6); Phosphorus 3.2 mg/dL (2.5-4.90)
[2021-04-07 08:32] LABS: Cholesterol 107 mg/dL (< 200); HDL Cholesterol 28 mg/dL (40-59); LDL Cholesterol 77 mg/dL (< 100); Triglycerides 43 mg/dL (< 150)
[2021-04-07 09:00] VITALS: BP 100/49
[2021-04-07] MEDS: FUROSEMIDE 40 MG/4 ML VIAL IV SCH (10:00)
[2021-04-07] MEDS: HEPARIN SODIUM (PORCINE) 5000 UNITS/ML 1ML VIAL SC SCH (10:00)
[2021-04-07] MEDS: SPIRONOLACTONE 25 MG TAB PO SCH (10:00)
[2021-04-07] MEDS: FAMOTIDINE (10MG/ML) 2ML VL IV SCH (10:35)
[2021-04-07] MEDS: MULTIPLE VITAMIN TAB PO SCH (10:35)
[2021-04-07] MEDS: ZINC SULFATE 220mg CAP or TAB PO SCH (10:35)
[2021-04-07] MEDS: ASCORBIC ACID 500 MG TAB PO SCH (10:36)
[2021-04-07] MEDS ORDERED: ALBUMIN 25% 50 ML IV ONE (11:30)
[2021-04-07 12:09] LABS: Hepatitis A Ab IgM Negative
[2021-04-07 12:21] LABS: Hepatitis B Core IgM Negative
[2021-04-07 13:00] VITALS: BP 106/58
[2021-04-07 13:43] LABS: Hepatitis C Antibody Positive (Negative)
[2021-04-07] MEDS ORDERED: AZTREONAM 1GM INJ 1 GM in D5W 5% 50 ML IV SCH (14:00)
[2021-04-07 14:13] VITALS: BP 134/82
[2021-04-07 16:54] VITALS: BP 98/53
== END 2021-04-07 18:49 | disposition home or self-care (01) | DRG 433 ==
LOC: ER 23:30 → TELE 04-06 06:15 → EAST 04-06 11:05
PROVIDERS: ADMIT Nurse Practitioner Family; ATTEND Internal Medicine
PROC: 0W9G3ZZ Drainage of Peritoneal Cavity, Percutaneous Approach (ICD-10-PCS; principal; 2021-04-07)
DX: K70.31 Alcoholic cirrhosis of liver with ascites (principal); E44.0 Moderate protein-calorie malnutrition; F10.10 Alcohol abuse, uncomplicated; F17.210 Nicotine dependence, cigarettes, uncomplicated; I10 Essential (primary) hypertension; F41.9 Anxiety disorder, unspecified; I95.9 Hypotension, unspecified; R14.0 Abdominal distension (gaseous); Z20.822 Contact with and (suspected) exposure to COVID-19; E88.09 Other disorders of plasma-protein metabolism, not elsewhere classified; R79.89 Other specified abnormal findings of blood chemistry; Z68.23 Body mass index [BMI] 23.0-23.9, adult; Z88.0 Allergy status to penicillin; Z91.030 Bee allergy status; Z90.49 Acquired absence of other specified parts of digestive tract; Z82.49 Family history of ischemic heart disease and other diseases of the circulatory system; Z80.3 Family history of malignant neoplasm of breast
CPT/HCPCS: 36415; 76700; 76942; 80053; 80061; 80074; 82140; 82728; 83036; 83735; 83880; 84100; 84443; 84484; 85025; 85610; 85730; 87040; 87081; 87426; 96374; 96375; G0378; J2405; J3490; J7060; P9047

== ENCOUNTER 2021-04-17 10:25 | Emergency (ER) | payer OTHER, MEDICAID ==
[~2021-04-17] VITALS: Ht 177.8 cm; Wt 72.6 kg
[~2021-04-17 10:25] MED LIST changes: +FERR-7 PO; +FOLI1TAB6 PO; +FURO1TAB33 PO; -FURO40TA4 PO; -HYDR-4833 PO; +LACT10SO3 PO; -PROP20TA73 PO; +SUCR1TAB22 PO; +TAMS0.4C36 PO
[2021-04-17 11:19] LABS: Basophils # (auto) 0.1 10 ^3/uL (0-0.2); Basophils % (auto) 0.8 % (0.0-2.0); Eosinophils # (auto) 0.2 10 ^3/uL (0-0.8); Eosinophils % (auto) 1.6 % (0.0-7.0); Hematocrit 32.6 % (41.0-53.0); Hemoglobin 10.9 g/dL (13.5-17.5); Lymphocytes # (auto) 2.3 10 ^3/uL (0.4-5.4); Lymphocytes % (auto) 23.8 % (10.0-50.0); Mean Corpuscular Hemoglobin 32.3 pg (28.0-32.0); Mean Corpuscular Hgb Conc. 33.3 g/dL (32.0-36.0); Monocytes # (auto) 1.2 10 ^3/uL (0-1.3); Monocytes % (auto) 12.8 % (0.0-12.0); Neutrophils # (auto) 5.8 10 ^3/uL (1.6-8.6); Nucleated Red Blood Cells % 0.3 %; Red Blood Cells 3.36 10^6/uL (4.5-5.90); Red Cell Distribution Width 15.9 % (11.8-14.3); White Blood Cell 9.5 10^3/uL (4.4-10.8)
[2021-04-17 11:43] LABS: Albumin 2.3 g/dL (3.4-5.0); Potassium 4.1 mmol/L (3.5-5.1)
[2021-04-17 11:47] LABS: BUN/Creatinine Ratio 17.9; Bilirubin, Total 1.2 mg/dL (0.2-1.0); Total Protein 7.2 g/dL (6.4-8.2)
[2021-04-17 13:30] LABS: INR 1.24 (0.9-1.15); Partial Thromboplastin Time 30.5 sec (23.6-33.0)
[2021-04-17 17:17] VITALS: BP 114/47
== END 2021-04-17 17:31 | disposition home or self-care (01) ==
LOC: ER 10:25
DX: K74.60 Unspecified cirrhosis of liver (principal); R18.8 Other ascites; E43 Unspecified severe protein-calorie malnutrition; Z68.23 Body mass index [BMI] 23.0-23.9, adult; Z20.822 Contact with and (suspected) exposure to COVID-19
CPT/HCPCS: 36415; 71045; 74176; 76700; 76942; 80053; 83880; 84484; 85025; 85610; 85730; 87426; 93005; 99285; C1729

== ENCOUNTER 2021-05-15 11:38 | Inpatient (IN) | payer OTHER, MEDICAID ==
[2021-05-15] VITALS (10 sets, daily range): BP systolic 99–133; BP diastolic 45–68
[~2021-05-15] VITALS: Ht 172.7 cm; Wt 77.5 kg
[2021-05-15] MEDS ORDERED: MORPHINE SULFATE 4 MG/ML SYR/VIAL IV ONE (12:00)
[2021-05-15] MEDS ORDERED: ONDANSETRON HCL 4 MG/2 ML VIAL IV ONE (12:00)
[2021-05-15 12:16] LABS: Eosinophils # (auto) 0.1 10 ^3/uL (0-0.8); Neutrophils # (auto) 7.9 10 ^3/uL (1.6-8.6); Nucleated Red Blood Cells % 0.1 %
[2021-05-15 12:17] LABS: Basophils # (auto) 0.2 10 ^3/uL (0-0.2); Basophils % (auto) 1.3 % (0.0-2.0); Eosinophils % (auto) 0.6 % (0.0-7.0); Hematocrit 21.2 % (41.0-53.0); Lymphocytes # (auto) 2.6 10 ^3/uL (0.4-5.4); Lymphocytes % (auto) 21.3 % (10.0-50.0); Mean Corpuscular Hgb Conc. 32.4 g/dL (32.0-36.0); Mean Corpuscular Volume 89.7 fL (80.0-100.0); Monocytes # (auto) 1.5 10 ^3/uL (0-1.3); Neutrophils % (auto) 64.8 % (37.0-80.0); Red Blood Cells 2.36 10^6/uL (4.5-5.90); Red Cell Distribution Width 17.8 % (11.8-14.3); White Blood Cell 12.2 10^3/uL (4.4-10.8)
[2021-05-15 12:23] LABS: Hemoglobin 6.9 g/dL (13.5-17.5)
[2021-05-15 12:28] LABS: INR 1.32 (0.9-1.15); Partial Thromboplastin Time 29.5 sec (23.6-33.0)
[2021-05-15 12:35] LABS: Albumin 1.6 g/dL (3.4-5.0); BUN/Creatinine Ratio 43.4; Calcium 7.9 mg/dL (8.5-10.1)
[2021-05-15 12:37] LABS: Bilirubin, Total 0.8 mg/dL (0.2-1.0); Total Protein 5.7 g/dL (6.4-8.2)
[2021-05-15 12:44] LABS: Potassium 5.6 mmol/L (3.5-5.1)
[2021-05-15] MEDS ORDERED: FUROSEMIDE 40 MG/4 ML VIAL IV ONE (13:30)
[2021-05-15] MEDS ORDERED: SODIUM BICARBONATE 8.4% INJ 50ML SYRINGE IV ONE (13:30)
[2021-05-15] MEDS ORDERED: InsuLIN REG 1unit/0.01ml Soln (100units/ml) IV ONE (13:30)
[2021-05-15] MEDS ORDERED: DEXTROSE (50%) 50ML SYRG IV ONE (13:30)
[2021-05-15] MEDS ORDERED: SODIUM ZIRCONIUM CYCL 10 GM PAK PO ONE (13:30)
[2021-05-15] MEDS ORDERED: NITROGLYCERIN 0.4 MG SL TAB SL PRN ×2 (13:30→17:00)
[2021-05-15] MEDS ORDERED: MORPHINE SULFATE INJECTION 2 MG/ML SYRG IV PRN ×3 (13:30→17:00)
[2021-05-15] MEDS ORDERED: CALCIUM CHL 100MG/ML 1,000 MG in D5W 5% 100 ML IV ONE (13:30)
[2021-05-15] MEDS ORDERED: ALBUTEROL SULF 2.5 MG/0.5ML(0.5%) NEB SOLN NEB ONE (13:30)
[2021-05-15] MEDS ORDERED: levoFLOXacin 500MG 100 ML IV ONE (16:45)
[2021-05-15] MEDS ORDERED: PANTOPRAZOLE 40 MG/10 ML VIAL INJ IV ONE (16:45)
[2021-05-15] MEDS ORDERED: SUCRALFATE 1 GM/10 ML ORAL SUSP PO ONE (16:45)
[2021-05-15] MEDS ORDERED: SUCRALFATE 1 GM/10 ML ORAL SUSP PO SCH (17:00)
[2021-05-15] MEDS ORDERED: HYDROcodone-ACET 5/325MG TAB PO PRN (17:00)
[2021-05-15] MEDS ORDERED: LORazepam 0.5 MG TAB PO PRN (17:00)
[2021-05-15] MEDS ORDERED: METOCLOPRAMIDE HCL 5MG/ml INJ 2ml VIAL IV PRN (17:00)
[2021-05-15] MEDS ORDERED: DOCUSATE SOD 100 MG CAP PO PRN (17:00)
[2021-05-15] MEDS: LACTULOSE 20Gm/30ML SOLN PO SCH ×2 (17:32→22:50)
[2021-05-15 18:20] LABS: Potassium 4.5 mmol/L (3.5-5.1)
[2021-05-15 18:36] LABS: Urine Bacteria NONE SEEN /hpf (None Seen); Urine Blood Negative /uL (Negative); Urine Hyaline Cast FEW /lpf (0 - 2); Urine Specific Gravity 1.013 (1.001-1.035); Urine WBC <1 /hpf (0 - 3)
[2021-05-15 19:32] LABS: Alcohol, Urine < 3.0 mg/dL (0-10); Amphetamine Screen, Urine POSITIVE (NEGATIVE); Barbiturate Scree,Urine NEGATIVE (NEGATIVE); Benzodiazephine Screen, Urine NEGATIVE (NEGATIVE); Cocaine Screen, Urine NEGATIVE (NEGATIVE); Opiate Scree,Urine POSITIVE (NEGATIVE); Phencyclidine Screen, Urine NEGATIVE (NEGATIVE)
[2021-05-15 19:39] LABS: Cannabinoid Screen, Urine POSITIVE (NEGATIVE)
[2021-05-15] MEDS: SUCRALFATE 1 GM/10 ML ORAL SUSP PO SCH (22:51)
[2021-05-16] MEDS: SODIUM ZIRCONIUM CYCL 10 GM PAK PO SCH ×2 (02:09→07:10)
[2021-05-16] MEDS: LACTULOSE 20Gm/30ML SOLN PO SCH ×5 (02:21→21:58)
[2021-05-16 05:00] VITALS: BP 104/58
[2021-05-16] MEDS: SUCRALFATE 1 GM/10 ML ORAL SUSP PO SCH ×4 (06:30→21:58)
[2021-05-16 06:44] LABS: Basophils # (auto) 0.1 10 ^3/uL (0-0.2); Eosinophils # (auto) 0.3 10 ^3/uL (0-0.8); Hematocrit 24.4 % (41.0-53.0); Hemoglobin 7.9 g/dL (13.5-17.5); Red Cell Distribution Width 16.9 % (11.8-14.3); White Blood Cell 13.8 10^3/uL (4.4-10.8)
[2021-05-16 06:48] LABS: Basophils % (auto) 0.5 % (0.0-2.0); Lymphocytes % (auto) 21.9 % (10.0-50.0); Mean Corpuscular Hemoglobin 28.7 pg (28.0-32.0); Mean Corpuscular Hgb Conc. 32.4 g/dL (32.0-36.0); Mean Corpuscular Volume 88.8 fL (80.0-100.0); Monocytes # (auto) 1.9 10 ^3/uL (0-1.3); Monocytes % (auto) 13.9 % (0.0-12.0); Neutrophils # (auto) 8.5 10 ^3/uL (1.6-8.6); Neutrophils % (auto) 61.7 % (37.0-80.0); Red Blood Cells 2.75 10^6/uL (4.5-5.90)
[2021-05-16 07:24] LABS: Potassium 4.3 mmol/L (3.5-5.1)
[2021-05-16 07:32] LABS: Albumin 1.7 g/dL (3.4-5.0); BUN/Creatinine Ratio 36.4; Calcium 8.3 mg/dL (8.5-10.1); Magnesium 2.2 mg/dL (1.6-2.6); Uric Acid 8.2 mg/dL (3.5-7.2)
[2021-05-16 07:35] LABS: Bilirubin, Total 1.5 mg/dL (0.2-1.0); Phosphorus 4.3 mg/dL (2.5-4.90); Total Protein 5.7 g/dL (6.4-8.2)
[2021-05-16 08:00] VITALS: BP 112/69
[2021-05-16 09:00] VITALS: BP 112/69
[2021-05-16] MEDS: levoFLOXacin 500MG 100 ML IV SCH (10:46)
[2021-05-16] MEDS: PANTOPRAZOLE 40 MG/10 ML VIAL INJ IV SCH ×2 (10:46→21:57)
[2021-05-16] MEDS ORDERED: OCTREOTIDE ACETATE 100 MCG in SODIUM CHL 0.9% 50 ML IV ONE (11:15)
[2021-05-16] MEDS ORDERED: METOCLOPRAMIDE HCL 5MG/ml INJ 2ml VIAL IV PRN (12:45)
[2021-05-16 13:00] VITALS: BP 90/47
[2021-05-16] MEDS: OCTREOTIDE ACETATE 500 MCG in SODIUM CHL 0.9% 99 ML IV SCH ×2 (13:23→21:57)
[2021-05-16] MEDS: MORPHINE SULFATE INJECTION 2 MG/ML SYRG IV PRN ×2 (15:22→22:43)
[2021-05-16 17:00] VITALS: BP 105/66
[2021-05-16 22:00] VITALS: BP 108/63
[2021-05-17 05:00] VITALS: BP 107/62
[2021-05-17 05:31] LABS: Basophils # (auto) 0.1 10 ^3/uL (0-0.2); Basophils % (auto) 0.9 % (0.0-2.0); Eosinophils # (auto) 0.6 10 ^3/uL (0-0.8); Eosinophils % (auto) 5.7 % (0.0-7.0); Hematocrit 23.3 % (41.0-53.0); Hemoglobin 7.6 g/dL (13.5-17.5); Lymphocytes # (auto) 2.7 10 ^3/uL (0.4-5.4); Lymphocytes % (auto) 23.4 % (10.0-50.0); Mean Corpuscular Hemoglobin 29.4 pg (28.0-32.0); Mean Corpuscular Hgb Conc. 32.8 g/dL (32.0-36.0); Mean Corpuscular Volume 89.7 fL (80.0-100.0); Monocytes # (auto) 1.9 10 ^3/uL (0-1.3); Monocytes % (auto) 16.4 % (0.0-12.0); Neutrophils # (auto) 6.2 10 ^3/uL (1.6-8.6); Neutrophils % (auto) 53.6 % (37.0-80.0); Nucleated Red Blood Cells % 0.1 %; Red Cell Distribution Width 17.1 % (11.8-14.3); White Blood Cell 11.5 10^3/uL (4.4-10.8)
[2021-05-17 05:50] LABS: Albumin 1.7 g/dL (3.4-5.0); Calcium 7.9 mg/dL (8.5-10.1); Potassium 4.7 mmol/L (3.5-5.1)
[2021-05-17] MEDS: LACTULOSE 20Gm/30ML SOLN PO SCH ×3 (05:50→21:18)
[2021-05-17] MEDS: SUCRALFATE 1 GM/10 ML ORAL SUSP PO SCH ×4 (05:51→21:18)
[2021-05-17 05:52] LABS: BUN/Creatinine Ratio 29.7
[2021-05-17 05:53] LABS: INR 1.33 (0.9-1.15); Partial Thromboplastin Time 32.4 sec (23.6-33.0)
[2021-05-17 05:54] LABS: Bilirubin, Total 0.8 mg/dL (0.2-1.0); Total Protein 5.8 g/dL (6.4-8.2)
[2021-05-17] MEDS: OCTREOTIDE ACETATE 500 MCG in SODIUM CHL 0.9% 99 ML IV SCH ×3 (06:38→21:39)
[2021-05-17] MEDS ORDERED: MIDAZOLAM HCL 5 MG/ML-1ML VIAL ONE (06:59)
[2021-05-17] MEDS ORDERED: LIDOCAINE VISCOUS 2% 15ML UD ONE (06:59)
[2021-05-17] MEDS ORDERED: fentaNYL CITRATE 100 MCG/2 ML VL ONE (07:00)
[2021-05-17] MEDS ORDERED: diphenhdrAMINE HCL 50 MG/1 ML VL ONE (07:00)
[2021-05-17 09:00] VITALS: BP 97/54
[2021-05-17] MEDS: levoFLOXacin 500MG 100 ML IV SCH (11:00)
[2021-05-17] MEDS: PANTOPRAZOLE 40 MG/10 ML VIAL INJ IV SCH ×2 (11:00→21:18)
[2021-05-17] MEDS ORDERED: PHYTONADIONE (VIT K)10 MG/ML 1ML VIAL SUBCUT ONE (11:30)
[2021-05-17 12:40] VITALS: BP 91/46
[2021-05-17] MEDS: MORPHINE SULFATE INJECTION 2 MG/ML SYRG IV PRN ×2 (14:30→18:51)
[2021-05-17 16:50] VITALS: BP 103/62
[2021-05-17 22:00] VITALS: BP 106/59
[2021-05-18] VITALS (11 sets, daily range): BP systolic 94–131; BP diastolic 52–76
[2021-05-18 05:15] LABS: Basophils # (auto) 0.1 10 ^3/uL (0-0.2); Eosinophils # (auto) 0.3 10 ^3/uL (0-0.8); Hematocrit 20.6 % (41.0-53.0); Lymphocytes # (auto) 1.9 10 ^3/uL (0.4-5.4); Lymphocytes % (auto) 20.2 % (10.0-50.0); Mean Corpuscular Hgb Conc. 33.6 g/dL (32.0-36.0); Nucleated Red Blood Cells % 0.1 %; White Blood Cell 9.3 10^3/uL (4.4-10.8)
[2021-05-18 05:18] LABS: Basophils % (auto) 0.7 % (0.0-2.0); Eosinophils % (auto) 3.5 % (0.0-7.0); Mean Corpuscular Hemoglobin 30.2 pg (28.0-32.0); Mean Corpuscular Volume 89.9 fL (80.0-100.0); Monocytes # (auto) 1.2 10 ^3/uL (0-1.3); Monocytes % (auto) 13.2 % (0.0-12.0); Neutrophils # (auto) 5.8 10 ^3/uL (1.6-8.6); Neutrophils % (auto) 62.4 % (37.0-80.0); Red Blood Cells 2.29 10^6/uL (4.5-5.90); Red Cell Distribution Width 17.1 % (11.8-14.3)
[2021-05-18 05:24] LABS: Hemoglobin 6.9 g/dL (13.5-17.5)
[2021-05-18 05:54] LABS: BUN/Creatinine Ratio 31.6; Calcium 7.6 mg/dL (8.5-10.1); Potassium 4.5 mmol/L (3.5-5.1)
[2021-05-18] MEDS: LACTULOSE 20Gm/30ML SOLN PO SCH ×3 (06:00→21:30)
[2021-05-18] MEDS: SUCRALFATE 1 GM/10 ML ORAL SUSP PO SCH ×4 (06:08→21:30)
[2021-05-18] MEDS: MORPHINE SULFATE INJECTION 2 MG/ML SYRG IV PRN ×2 (09:49→18:02)
[2021-05-18] MEDS: PANTOPRAZOLE 40 MG/10 ML VIAL INJ IV SCH ×2 (09:49→21:30)
[2021-05-18] MEDS: HYDROcodone-ACET 5/325MG TAB PO PRN (12:38)
[2021-05-18] MEDS: ALUM & MAG HYDROX-SIMETH LIQ(MAALOX) 30 ML PO PRN ×2 (12:38→20:28)
[2021-05-18] MEDS: levoFLOXacin 500MG 100 ML IV SCH (14:03)
[2021-05-18] MEDS: OCTREOTIDE ACETATE 500 MCG in SODIUM CHL 0.9% 99 ML IV SCH (16:55)
[2021-05-19] MEDS: MORPHINE SULFATE INJECTION 2 MG/ML SYRG IV PRN ×3 (00:25→21:12)
[2021-05-19] MEDS ORDERED: OCTREOTIDE ACETATE 500 MCG in SODIUM CHL 0.9% 99 ML IV SCH (03:00)
[2021-05-19 05:00] VITALS: BP 109/71
[2021-05-19 05:41] LABS: Basophils # (auto) 0.1 10 ^3/uL (0-0.2); Basophils % (auto) 0.9 % (0.0-2.0); Eosinophils # (auto) 0.4 10 ^3/uL (0-0.8); Eosinophils % (auto) 5.6 % (0.0-7.0); Hematocrit 25.5 % (41.0-53.0); Hemoglobin 8.6 g/dL (13.5-17.5); Lymphocytes # (auto) 1.5 10 ^3/uL (0.4-5.4); Lymphocytes % (auto) 19.7 % (10.0-50.0); Mean Corpuscular Hemoglobin 29.3 pg (28.0-32.0); Mean Corpuscular Hgb Conc. 33.6 g/dL (32.0-36.0); Mean Corpuscular Volume 87.2 fL (80.0-100.0); Monocytes # (auto) 1.4 10 ^3/uL (0-1.3); Monocytes % (auto) 17.8 % (0.0-12.0); Neutrophils # (auto) 4.4 10 ^3/uL (1.6-8.6); Nucleated Red Blood Cells % 0.2 %; Red Blood Cells 2.93 10^6/uL (4.5-5.90); Red Cell Distribution Width 18.6 % (11.8-14.3); White Blood Cell 7.8 10^3/uL (4.4-10.8)
[2021-05-19 05:53] LABS: INR 1.27 (0.9-1.15)
[2021-05-19 06:03] LABS: Potassium 4.7 mmol/L (3.5-5.1)
[2021-05-19 06:06] LABS: Albumin 1.8 g/dL (3.4-5.0); BUN/Creatinine Ratio 25.2; Calcium 7.6 mg/dL (8.5-10.1)
[2021-05-19 06:17] LABS: Total Protein 6.1 g/dL (6.4-8.2)
[2021-05-19] MEDS: SUCRALFATE 1 GM/10 ML ORAL SUSP PO SCH ×4 (06:23→21:11)
[2021-05-19] MEDS: LACTULOSE 20Gm/30ML SOLN PO SCH ×3 (06:24→21:11)
[2021-05-19 09:00] VITALS: BP 144/59
[2021-05-19] MEDS: PANTOPRAZOLE 40 MG/10 ML VIAL INJ IV SCH ×2 (09:17→21:11)
[2021-05-19] MEDS: levoFLOXacin 500MG 100 ML IV SCH (09:17)
[2021-05-19] MEDS ORDERED: ALBUMIN 25% 100 ML IV ONE (10:45)
[2021-05-19 12:50] VITALS: BP 122/52
[2021-05-19 17:00] VITALS: BP 106/51
[2021-05-19] MEDS: ALUM & MAG HYDROX-SIMETH LIQ(MAALOX) 30 ML PO PRN (20:16)
[2021-05-19 22:00] VITALS: BP 98/50
[2021-05-20 05:00] VITALS: BP 114/35
[2021-05-20] MEDS: LACTULOSE 20Gm/30ML SOLN PO SCH ×3 (06:02→21:04)
[2021-05-20] MEDS: SUCRALFATE 1 GM/10 ML ORAL SUSP PO SCH ×4 (06:02→21:05)
[2021-05-20 09:00] VITALS: BP 99/48
[2021-05-20] MEDS: PANTOPRAZOLE 40 MG/10 ML VIAL INJ IV SCH (09:27)
[2021-05-20] MEDS: levoFLOXacin 500MG 100 ML IV SCH (09:27)
[2021-05-20] MEDS: MORPHINE SULFATE INJECTION 2 MG/ML SYRG IV PRN ×3 (11:00→21:06)
[2021-05-20] MEDS: HYDROcodone-ACET 5/325MG TAB PO PRN ×2 (12:45→19:36)
[2021-05-20 12:51] VITALS: BP 94/54
[2021-05-20 15:47] VITALS: BP 115/57
[2021-05-20 17:00] VITALS: BP 97/59
[2021-05-20 22:00] VITALS: BP 114/58
[2021-05-20] MEDS: PANTOPRAZOLE 40 MG TAB PO SCH (22:00)
[2021-05-21 05:00] VITALS: BP 98/49
[2021-05-21] MEDS: SUCRALFATE 1 GM/10 ML ORAL SUSP PO SCH (06:03)
[2021-05-21] MEDS: HYDROcodone-ACET 5/325MG TAB PO PRN (06:03)
[2021-05-21] MEDS: LACTULOSE 20Gm/30ML SOLN PO SCH (06:03)
[2021-05-21 09:00] VITALS: BP 97/66
[2021-05-21] MEDS: PANTOPRAZOLE 40 MG TAB PO SCH (10:00)
[2021-05-21] MEDS: levoFLOXacin 500MG 100 ML IV SCH (10:00)
== END 2021-05-21 11:28 | DRG 380 ==
LOC: ER 11:38 → EDBD 11:38 → TELE 13:24 → TELE-WESTW 18:25
PROVIDERS: ADMIT Hospitalist; ATTEND Internal Medicine
PROC: 30233N1 Transfusion of Nonautologous Red Blood Cells into Peripheral Vein, Percutaneous Approach (ICD-10-PCS; principal; 2021-05-15)
PROC: 0W3P8ZZ Control Bleeding in Gastrointestinal Tract, Via Natural or Artificial Opening Endoscopic (ICD-10-PCS; 2021-05-15)
PROC: 0W9G3ZZ Drainage of Peritoneal Cavity, Percutaneous Approach (ICD-10-PCS; 2021-05-19)
DX: K22.11 Ulcer of esophagus with bleeding (principal); N17.0 Acute kidney failure with tubular necrosis; I85.11 Secondary esophageal varices with bleeding; K76.6 Portal hypertension; D62 Acute posthemorrhagic anemia; D68.4 Acquired coagulation factor deficiency; E44.0 Moderate protein-calorie malnutrition; K70.31 Alcoholic cirrhosis of liver with ascites; D64.9 Anemia, unspecified; E87.5 Hyperkalemia; F10.10 Alcohol abuse, uncomplicated; K44.9 Diaphragmatic hernia without obstruction or gangrene; F15.10 Other stimulant abuse, uncomplicated; N18.9 Chronic kidney disease, unspecified; I12.9 Hypertensive chronic kidney disease with stage 1 through stage 4 chronic kidney disease, or unspecified chronic kidney disease; Z20.822 Contact with and (suspected) exposure to COVID-19; F41.9 Anxiety disorder, unspecified; R74.01 Elevation of levels of liver transaminase levels; K29.20 Alcoholic gastritis without bleeding; Z79.899 Other long term (current) drug therapy; Z88.0 Allergy status to penicillin; Z90.49 Acquired absence of other specified parts of digestive tract; Z68.20 Body mass index [BMI] 20.0-20.9, adult
CPT/HCPCS: 36415; 36430; 71045; 76700; 76942; 80048; 80053; 80307; 81001; 82140; 82306; 83036; 83690; 83735; 83880; 84100; 84132; 84443; 84484; 84550; 85025; 85379; 85610; 85730; 86850; 86900; 86901; 86920; 87040; 87081; 87086; 87426; 93005; 93306; 94640; 96365; 96375; C9113; G0378; J1815; J1956; J2250; J2405; J3430; J7060; P9047

== ENCOUNTER 2021-07-28 17:49 | Inpatient (IN) | payer OTHER, MEDICAID ==
[~2021-07-28] VITALS: Ht 177.8 cm; Wt 70.6 kg
[2021-07-29 00:01] LABS: Basophils # (auto) 0.1 10 ^3/uL (0-0.2); Basophils % (auto) 0.5 % (0.0-2.0); Eosinophils # (auto) 0.1 10 ^3/uL (0-0.8); Eosinophils % (auto) 0.6 % (0.0-7.0); Hematocrit 36.7 % (41.0-53.0); Hemoglobin 12.1 g/dL (13.5-17.5); Lymphocytes # (auto) 1.3 10 ^3/uL (0.4-5.4); Lymphocytes % (auto) 9.9 % (10.0-50.0); Mean Corpuscular Hemoglobin 27.3 pg (28.0-32.0); Mean Corpuscular Hgb Conc. 33.1 g/dL (32.0-36.0); Mean Corpuscular Volume 82.5 fL (80.0-100.0); Monocytes # (auto) 1.4 10 ^3/uL (0-1.3); Monocytes % (auto) 10.3 % (0.0-12.0); Neutrophils # (auto) 10.6 10 ^3/uL (1.6-8.6); Neutrophils % (auto) 78.7 % (37.0-80.0); Nucleated Red Blood Cells % 0.2 %; Red Blood Cells 4.44 10^6/uL (4.5-5.90); White Blood Cell 13.4 10^3/uL (4.4-10.8)
[2021-07-29 00:04] LABS: Red Cell Distribution Width 28.7 % (11.8-14.3)
[2021-07-29 00:16] LABS: INR 1.44 (0.9-1.15); Partial Thromboplastin Time 32.1 sec (23.6-33.0)
[2021-07-29 00:25] LABS: Albumin 2.3 g/dL (3.4-5.0); BUN/Creatinine Ratio 17.1; Calcium 8.4 mg/dL (8.5-10.1); Potassium 3.6 mmol/L (3.5-5.1)
[2021-07-29 00:27] LABS: Bilirubin, Total 1.2 mg/dL (0.2-1.0); Total Protein 7.5 g/dL (6.4-8.2)
[2021-07-29] MEDS ORDERED: hydrALAZINE HCL 20 MG/ML VL IV ONE (10:15)
[2021-07-29] MEDS ORDERED: NITROGLYCERIN 0.4 MG SL TAB SL PRN (12:30)
[2021-07-29] MEDS ORDERED: MORPHINE SULFATE INJECTION 2 MG/ML SYRG IV PRN (12:30)
[2021-07-29] MEDS ORDERED: ONDANSETRON HCL 4 MG/2 ML VIAL IV PRN (14:45)
[2021-07-29] MEDS ORDERED: HYDROcodone-ACET 5/325MG TAB PO ONE (14:45)
[2021-07-29] MEDS ORDERED: HYDROcodone-ACET 5/325MG TAB PO PRN (14:45)
[2021-07-29] MEDS ORDERED: ALBUMIN 25% 100 ML IV ONE (14:45)
[2021-07-29] MEDS ORDERED: MEROPENEM 1GM IVPB 100 ML IV ONE (15:45)
[2021-07-29] MEDS ORDERED: DOCUSATE SOD 100 MG CAP PO PRN (15:45)
[2021-07-29] MEDS ORDERED: IPRATROPIUM BROM 0.5 MG/2.5ML INH SOL NEB ONE (15:45)
[2021-07-29] MEDS ORDERED: PANTOPRAZOLE 40 MG/10 ML VIAL INJ IV ONE (15:45)
[2021-07-29 16:25] VITALS: BP 136/66
[2021-07-29] MEDS ORDERED: IPRATROPIUM BROM 0.5 MG/2.5ML INH SOL NEB PRN (16:45)
[2021-07-29 17:00] VITALS: BP 133/61
[2021-07-29] MEDS: SUCRALFATE 1 GM TAB PO SCH ×3 (17:00→23:06)
[2021-07-29] MEDS: ALBUMIN 25% 100 ML IV SCH ×2 (17:00→23:45)
[2021-07-29] MEDS ORDERED: IPRATROPIUM BROM 0.5 MG/2.5ML INH SOL NEB SCH (18:00)
[2021-07-29] MEDS: LACTULOSE 20Gm/30ML SOLN PO SCH ×2 (18:03→22:00)
[2021-07-29] MEDS: TAMSULOSIN HYDROCHLORIDE 0.4 MG CAP PO SCH (18:03)
[2021-07-29] MEDS: FUROSEMIDE 20 MG TAB PO SCH (18:04)
[2021-07-29] MEDS: FERROUS SULFATE 325mg EC TAB PO SCH (18:04)
[2021-07-29 20:00] VITALS: BP 102/62
[2021-07-29 20:03] LABS: INR 1.51 (0.9-1.15); Partial Thromboplastin Time 33.3 sec (23.6-33.0)
[2021-07-29 22:00] VITALS: BP 102/57
[2021-07-29] MEDS: PANTOPRAZOLE 40 MG/10 ML VIAL INJ IV SCH ×2 (22:00→23:06)
[2021-07-29] MEDS ORDERED: MEROPENEM 1GM IVPB 100 ML IV SCH (22:00)
[2021-07-29] MEDS: PROPRANOLOL HCL 20 MG TAB PO SCH ×2 (22:00→23:08)
[2021-07-30] VITALS (7 sets, daily range): BP systolic 86–109; BP diastolic 50–61
[2021-07-30] MEDS: LACTULOSE 20Gm/30ML SOLN PO SCH ×6 (01:30→22:00)
[2021-07-30] MEDS: FUROSEMIDE 20 MG TAB PO SCH ×2 (05:29→16:31)
[2021-07-30] MEDS: SUCRALFATE 1 GM TAB PO SCH ×4 (06:39→22:00)
[2021-07-30 07:58] LABS: Basophils # (auto) 0 10 ^3/uL (0-0.2); Basophils % (auto) 0.2 % (0.0-2.0); Eosinophils # (auto) 0.2 10 ^3/uL (0-0.8); Eosinophils % (auto) 1.8 % (0.0-7.0); Hematocrit 32.1 % (41.0-53.0); Hemoglobin 10.5 g/dL (13.5-17.5); Lymphocytes # (auto) 1.6 10 ^3/uL (0.4-5.4); Lymphocytes % (auto) 13.7 % (10.0-50.0); Mean Corpuscular Hgb Conc. 32.6 g/dL (32.0-36.0); Mean Corpuscular Volume 82.7 fL (80.0-100.0); Monocytes # (auto) 1.2 10 ^3/uL (0-1.3); Monocytes % (auto) 10.7 % (0.0-12.0); Neutrophils # (auto) 8.3 10 ^3/uL (1.6-8.6); Neutrophils % (auto) 73.6 % (37.0-80.0); Nucleated Red Blood Cells % 0.1 %; Red Blood Cells 3.88 10^6/uL (4.5-5.90); White Blood Cell 11.4 10^3/uL (4.4-10.8)
[2021-07-30 07:59] LABS: Red Cell Distribution Width 28.3 % (11.8-14.3)
[2021-07-30 08:08] LABS: INR 1.55 (0.9-1.15); Partial Thromboplastin Time 37.3 sec (23.6-33.0)
[2021-07-30 08:13] LABS: Calcium 7.9 mg/dL (8.5-10.1); Potassium 3.3 mmol/L (3.5-5.1)
[2021-07-30 08:21] LABS: BUN/Creatinine Ratio 20.2; Bilirubin, Total 0.8 mg/dL (0.2-1.0); CRP High Sensitivity 1.95 mg/dL (< 0.3); Phosphorus 2.3 mg/dL (2.5-4.90); Total Protein 5.8 g/dL (6.4-8.2)
[2021-07-30] MEDS: ALBUMIN 25% 100 ML IV SCH (08:38)
[2021-07-30] MEDS: PROPRANOLOL HCL 20 MG TAB PO SCH ×2 (10:00→22:00)
[2021-07-30] MEDS: SPIRONOLACTONE 25 MG TAB PO SCH (10:00)
[2021-07-30] MEDS: FERROUS SULFATE 325mg EC TAB PO SCH ×3 (10:16→19:05)
[2021-07-30] MEDS: PANTOPRAZOLE 40 MG/10 ML VIAL INJ IV SCH ×2 (10:17→22:00)
[2021-07-30] MEDS: cefTRIAXone 1GM/50ML D5W 50 ML IV SCH (10:17)
[2021-07-30] MEDS: TAMSULOSIN HYDROCHLORIDE 0.4 MG CAP PO SCH (16:30)
[2021-07-30] MEDS ORDERED: POTASSIUM PHOSPHATE 26.4 MEQ in SODIUM CHL 0.9% 100 ML IV ONE (18:00)
[2021-07-30] MEDS ORDERED: POTASSIUM CHL 20 Meq TABLET PO ONE (18:00)
[2021-07-30] MEDS: MORPHINE SULFATE INJECTION 2 MG/ML SYRG IV PRN (23:38)
[2021-07-31] MEDS: LACTULOSE 20Gm/30ML SOLN PO SCH ×6 (02:00→22:00)
[2021-07-31 05:00] VITALS: BP 99/59
[2021-07-31] MEDS: FUROSEMIDE 20 MG TAB PO SCH ×2 (06:00→17:54)
[2021-07-31] MEDS: SUCRALFATE 1 GM TAB PO SCH ×4 (06:46→22:59)
[2021-07-31 07:26] LABS: Potassium 3.4 mmol/L (3.5-5.1)
[2021-07-31 07:38] LABS: Albumin 2.3 g/dL (3.4-5.0); BUN/Creatinine Ratio 20.4; Bilirubin, Total 0.7 mg/dL (0.2-1.0); Total Protein 6.2 g/dL (6.4-8.2)
[2021-07-31] MEDS: FERROUS SULFATE 325mg EC TAB PO SCH ×3 (08:46→17:54)
[2021-07-31] MEDS: cefTRIAXone 1GM/50ML D5W 50 ML IV SCH (08:47)
[2021-07-31] MEDS: PANTOPRAZOLE 40 MG/10 ML VIAL INJ IV SCH ×2 (08:47→22:58)
[2021-07-31 09:00] VITALS: BP 108/64
[2021-07-31] MEDS: PROPRANOLOL HCL 20 MG TAB PO SCH ×2 (10:00→23:00)
[2021-07-31] MEDS: SPIRONOLACTONE 25 MG TAB PO SCH (10:00)
[2021-07-31 13:00] VITALS: BP 151/64
[2021-07-31 17:00] VITALS: BP 107/60
[2021-07-31] MEDS: TAMSULOSIN HYDROCHLORIDE 0.4 MG CAP PO SCH (17:54)
[2021-07-31 20:00] VITALS: BP 102/62
[2021-07-31 22:00] VITALS: BP 102/60
[2021-07-31] MEDS: MORPHINE SULFATE INJECTION 2 MG/ML SYRG IV PRN (22:57)
[2021-08-01] MEDS: LACTULOSE 20Gm/30ML SOLN PO SCH ×4 (02:00→14:00)
[2021-08-01 05:00] VITALS: BP 111/58
[2021-08-01] MEDS: FUROSEMIDE 20 MG TAB PO SCH (06:35)
[2021-08-01] MEDS: SUCRALFATE 1 GM TAB PO SCH ×2 (06:36→11:30)
[2021-08-01] MEDS: FERROUS SULFATE 325mg EC TAB PO SCH ×2 (08:00→12:00)
[2021-08-01 09:00] VITALS: BP 118/71
[2021-08-01] MEDS: cefTRIAXone 1GM/50ML D5W 50 ML IV SCH (09:00)
[2021-08-01] MEDS: PANTOPRAZOLE 40 MG/10 ML VIAL INJ IV SCH (10:00)
[2021-08-01] MEDS: PROPRANOLOL HCL 20 MG TAB PO SCH (10:00)
[2021-08-01] MEDS: SPIRONOLACTONE 25 MG TAB PO SCH (10:00)
[2021-08-01] MEDS: MORPHINE SULFATE INJECTION 2 MG/ML SYRG IV PRN ×2 (11:00→18:59)
[2021-08-01 11:58] LABS: Basophils # (auto) 0.1 10 ^3/uL (0-0.2); Eosinophils # (auto) 0.2 10 ^3/uL (0-0.8); Eosinophils % (auto) 2.5 % (0.0-7.0); Hematocrit 35.6 % (41.0-53.0); Hemoglobin 11.8 g/dL (13.5-17.5); Lymphocytes # (auto) 1.6 10 ^3/uL (0.4-5.4); Lymphocytes % (auto) 16.9 % (10.0-50.0); Mean Corpuscular Hemoglobin 27.7 pg (28.0-32.0); Monocytes % (auto) 10.8 % (0.0-12.0); Neutrophils # (auto) 6.6 10 ^3/uL (1.6-8.6); Neutrophils % (auto) 68.8 % (37.0-80.0); Nucleated Red Blood Cells % 0.2 %; Red Blood Cells 4.24 10^6/uL (4.5-5.90); Red Cell Distribution Width 28.1 % (11.8-14.3); White Blood Cell 9.6 10^3/uL (4.4-10.8)
[2021-08-01 12:47] LABS: INR 1.48 (0.9-1.15); Partial Thromboplastin Time 35.6 sec (23.6-33.0)
[2021-08-01 13:00] VITALS: BP_SYST 109; BP_SYST 123; BP_DIAS 61; BP_DIAS 78
[2021-08-01 17:00] VITALS: BP 94/55
== END 2021-08-01 18:00 | disposition left against medical advice (07) | DRG 433 ==
LOC: EDBD 17:49 → ER 17:57 → OVERFLOW 07-29 12:20 → TELE-WESTW 07-29 14:54 → WEST WING 07-30 01:13
PROVIDERS: ADMIT Hospitalist; ATTEND Internal Medicine
PROC: 0W9G3ZZ Drainage of Peritoneal Cavity, Percutaneous Approach (ICD-10-PCS; principal; 2021-07-29)
PROC: 0W9G3ZZ Drainage of Peritoneal Cavity, Percutaneous Approach (ICD-10-PCS; 2021-08-01)
DX: K70.31 Alcoholic cirrhosis of liver with ascites (principal); D68.4 Acquired coagulation factor deficiency; K76.6 Portal hypertension; E44.0 Moderate protein-calorie malnutrition; B19.20 Unspecified viral hepatitis C without hepatic coma; D64.9 Anemia, unspecified; K29.20 Alcoholic gastritis without bleeding; I10 Essential (primary) hypertension; Z20.822 Contact with and (suspected) exposure to COVID-19; Z53.29 Procedure and treatment not carried out because of patient's decision for other reasons; Z80.1 Family history of malignant neoplasm of trachea, bronchus and lung; Z80.3 Family history of malignant neoplasm of breast; Z82.49 Family history of ischemic heart disease and other diseases of the circulatory system; F41.9 Anxiety disorder, unspecified; Z79.899 Other long term (current) drug therapy; Z88.0 Allergy status to penicillin; Z91.030 Bee allergy status; Z90.49 Acquired absence of other specified parts of digestive tract; Z68.22 Body mass index [BMI] 22.0-22.9, adult
CPT/HCPCS: 36415; 76705; 76942; 80053; 80061; 82105; 82140; 83036; 83690; 83735; 83880; 84100; 84443; 84484; 85025; 85379; 85610; 85652; 85730; 86141; 86850; 86900; 86901; 87040; 87426; 93005; C9113; G0378; J0696; J2185; P9047

== ENCOUNTER 2021-09-16 14:27 | Inpatient (IN) | payer OTHER, MEDICAID ==
[~2021-09-16] VITALS: Ht 177.8 cm; Wt 71.0 kg
[2021-09-16 15:50] LABS: Basophils # (auto) 0 10 ^3/uL (0-0.2); Basophils % (auto) 0.9 % (0.0-2.0); Eosinophils # (auto) 0 10 ^3/uL (0-0.8); Hematocrit 31.1 % (41.0-53.0); Hemoglobin 10.6 g/dL (13.5-17.5); Lymphocytes # (auto) 1.1 10 ^3/uL (0.4-5.4); Lymphocytes % (auto) 22.5 % (10.0-50.0); Mean Corpuscular Hemoglobin 31.4 pg (28.0-32.0); Mean Corpuscular Hgb Conc. 34.1 g/dL (32.0-36.0); Mean Corpuscular Volume 91.9 fL (80.0-100.0); Monocytes # (auto) 0.7 10 ^3/uL (0-1.3); Monocytes % (auto) 13.5 % (0.0-12.0); Neutrophils # (auto) 3.1 10 ^3/uL (1.6-8.6); Neutrophils % (auto) 62.1 % (37.0-80.0); Nucleated Red Blood Cells % 0.3 %; Red Blood Cells 3.38 10^6/uL (4.5-5.90); Red Cell Distribution Width 16.3 % (11.8-14.3)
[2021-09-16 16:10] LABS: Albumin 2.2 g/dL (3.4-5.0); Anion Gap 7 (5-15); Blood Urea Nitrogen 15 mg/dL (7-18); Calcium 8.1 mg/dL (8.5-10.1); Carbon Dioxide 24 mmol/L (21-32); Chloride 102 mmol/L (98-107); Glucose 107 mg/dL (74-106); Lipase 85 U/L (73-393); Potassium 3.6 mmol/L (3.5-5.1); Sodium 133 mmol/L (136-145)
[2021-09-16] MEDS ORDERED: fentaNYL CITRATE 100 MCG/2 ML VL IV ONE (16:15)
[2021-09-16 16:17] LABS: Alanine Aminotransferase 19 U/L (16-61); Alkaline Phosphatase 69 U/L (45-117); Aspartate Aminotransferase 52 U/L (15-37); BUN/Creatinine Ratio 10.6; Bilirubin, Total 1.5 mg/dL (0.2-1.0); GFR African American 64 mL/min; GFR Non-African American 53 mL/min; Total Protein 7.3 g/dL (6.4-8.2)
[2021-09-16 17:07] LABS: INR 1.43 (0.9-1.15); Partial Thromboplastin Time 32.2 sec (23.6-33.0)
[2021-09-16] MEDS ORDERED: FUROSEMIDE 100 MG/10ML VIAL IV ONE (19:30)
[2021-09-16] MEDS ORDERED: TEMAZEPAM 15 MG CAP PO PRN (20:45)
[2021-09-16] MEDS: PROPRANOLOL HCL 20 MG TAB PO SCH (22:33)
[2021-09-16] MEDS: LACTULOSE 20Gm/30ML SOLN PO SCH (22:34)
[2021-09-16 22:45] VITALS: BP_SYST 93; BP_DIAS 50; BP_DIAS 52
[2021-09-17 05:00] VITALS: BP 163/107
[2021-09-17 06:10] LABS: Urine Bacteria NONE SEEN /hpf (None Seen); Urine Blood Negative /uL (Negative); Urine Hyaline Cast FEW /lpf (0 - 2); Urine Specific Gravity 1.007 (1.001-1.035); Urine WBC 1 /hpf (0 - 3)
[2021-09-17 06:54] LABS: Albumin 2.1 g/dL (3.4-5.0); Calcium 8.1 mg/dL (8.5-10.1); Potassium 3.5 mmol/L (3.5-5.1)
[2021-09-17 06:58] LABS: BUN/Creatinine Ratio 12.3; Bilirubin, Total 1.1 mg/dL (0.2-1.0); Total Protein 7.2 g/dL (6.4-8.2)
[2021-09-17 07:48] LABS: Basophils # (auto) 0.2 10 ^3/uL (0-0.2); Basophils % (auto) 2.8 % (0.0-2.0); Eosinophils # (auto) 0.2 10 ^3/uL (0-0.8); Eosinophils % (auto) 2.8 % (0.0-7.0); Hematocrit 32.7 % (41.0-53.0); Hemoglobin 11.4 g/dL (13.5-17.5); Lymphocytes # (auto) 1.3 10 ^3/uL (0.4-5.4); Lymphocytes % (auto) 22.2 % (10.0-50.0); Mean Corpuscular Hgb Conc. 34.8 g/dL (32.0-36.0); Mean Corpuscular Volume 92.1 fL (80.0-100.0); Monocytes # (auto) 0.7 10 ^3/uL (0-1.3); Monocytes % (auto) 12.7 % (0.0-12.0); Neutrophils # (auto) 3.3 10 ^3/uL (1.6-8.6); Neutrophils % (auto) 59.5 % (37.0-80.0); Nucleated Red Blood Cells % 0.2 %; Red Blood Cells 3.55 10^6/uL (4.5-5.90); Red Cell Distribution Width 16.1 % (11.8-14.3); White Blood Cell 5.6 10^3/uL (4.4-10.8)
[2021-09-17 08:57] VITALS: BP 104/64
[2021-09-17] MEDS: FOLIC ACID 1 MG TAB PO SCH (10:00)
[2021-09-17] MEDS: LACTULOSE 20Gm/30ML SOLN PO SCH ×2 (10:00→22:25)
[2021-09-17] MEDS: SPIRONOLACTONE 25 MG TAB PO SCH (10:00)
[2021-09-17] MEDS: PROPRANOLOL HCL 20 MG TAB PO SCH ×2 (10:00→22:31)
[2021-09-17] MEDS: FUROSEMIDE 20 MG TAB PO SCH (10:00)
[2021-09-17 16:42] VITALS: BP 96/56
[2021-09-17] MEDS ORDERED: TAMSULOSIN HYDROCHLORIDE 0.4 MG CAP PO SCH (18:00)
[2021-09-17] MEDS: MORPHINE SULFATE 4 MG/ML SYR/VIAL IV PRN ×2 (21:05→23:41)
[2021-09-17 22:00] VITALS: BP_SYST 145; BP_SYST 82; BP_DIAS 53
[2021-09-18 05:00] VITALS: BP 109/67
[2021-09-18] MEDS: MORPHINE SULFATE 4 MG/ML SYR/VIAL IV PRN (06:16)
[2021-09-18 06:46] LABS: INR 1.47 (0.9-1.15)
[2021-09-18 06:52] LABS: Potassium 3.5 mmol/L (3.5-5.1)
[2021-09-18 06:58] LABS: Magnesium 2.4 mg/dL (1.6-2.6)
[2021-09-18 09:00] VITALS: BP 100/58
[2021-09-18] MEDS: SPIRONOLACTONE 25 MG TAB PO SCH (10:00)
[2021-09-18] MEDS: PROPRANOLOL HCL 20 MG TAB PO SCH (10:00)
[2021-09-18] MEDS: FOLIC ACID 1 MG TAB PO SCH (10:00)
[2021-09-18] MEDS: FUROSEMIDE 20 MG TAB PO SCH (10:00)
[2021-09-18] MEDS: LACTULOSE 20Gm/30ML SOLN PO SCH (10:00)
[2021-09-18 13:00] VITALS: BP 108/49
[2021-09-18 15:26] VITALS: BP 100/58
== END 2021-09-18 16:20 | disposition hospice, home (50) | DRG 947 ==
LOC: ER 14:27 → EDUNIT# 14:27 → OVERFLOW 20:33 → WEST WING 22:45
PROVIDERS: ADMIT Nurse Practitioner; ATTEND Internal Medicine
PROC: 0W9G3ZZ Drainage of Peritoneal Cavity, Percutaneous Approach (ICD-10-PCS; principal; 2021-09-17)
DX: R18.8 Other ascites (principal); N17.0 Acute kidney failure with tubular necrosis; D68.9 Coagulation defect, unspecified; E44.0 Moderate protein-calorie malnutrition; E88.09 Other disorders of plasma-protein metabolism, not elsewhere classified; K44.9 Diaphragmatic hernia without obstruction or gangrene; Z20.822 Contact with and (suspected) exposure to COVID-19; K40.90 Unilateral inguinal hernia, without obstruction or gangrene, not specified as recurrent; K74.60 Unspecified cirrhosis of liver; Z88.0 Allergy status to penicillin
CPT/HCPCS: 36415; 74176; 76705; 76942; 80053; 81001; 82140; 83605; 83615; 83690; 83735; 83880; 83986; 84132; 84484; 85025; 85610; 85730; 87205; 89051; 96374; 96375; G0378

== ENCOUNTER 2021-10-01 10:27 | Emergency (ER) | payer OTHER, MEDICAID ==
[~2021-10-01] VITALS: Ht 177.8 cm; Wt 70.3 kg
[2021-10-01 10:36] VITALS: BP 125/72
[2021-10-01 11:19] LABS: Basophils # (auto) 0.1 10 ^3/uL (0-0.2); Basophils % (auto) 0.9 % (0.0-2.0); Eosinophils # (auto) 0.1 10 ^3/uL (0-0.8); Eosinophils % (auto) 0.9 % (0.0-7.0); Hematocrit 31.3 % (41.0-53.0); Hemoglobin 10.7 g/dL (13.5-17.5); Lymphocytes # (auto) 1.1 10 ^3/uL (0.4-5.4); Lymphocytes % (auto) 17.5 % (10.0-50.0); Mean Corpuscular Hemoglobin 32.5 pg (28.0-32.0); Mean Corpuscular Hgb Conc. 34.2 g/dL (32.0-36.0); Monocytes # (auto) 0.5 10 ^3/uL (0-1.3); Monocytes % (auto) 7.7 % (0.0-12.0); Neutrophils # (auto) 4.6 10 ^3/uL (1.6-8.6); Nucleated Red Blood Cells % 0.1 %; White Blood Cell 6.3 10^3/uL (4.4-10.8)
[2021-10-01 11:43] LABS: Potassium 4.1 mmol/L (3.5-5.1)
[2021-10-01 11:51] LABS: Albumin 2.2 g/dL (3.4-5.0); Bilirubin, Total 0.9 mg/dL (0.2-1.0); Calcium 8.3 mg/dL (8.5-10.1); Total Protein 7.6 g/dL (6.4-8.2)
== END 2021-10-01 16:57 | disposition left against medical advice (07) ==
LOC: ER 10:27
DX: K74.60 Unspecified cirrhosis of liver (principal); D64.9 Anemia, unspecified; E43 Unspecified severe protein-calorie malnutrition; Z68.22 Body mass index [BMI] 22.0-22.9, adult
CPT/HCPCS: 36415; 80053; 83880; 85025; 93005

== ENCOUNTER 2021-10-02 07:12 | Emergency (ER) | payer OTHER, MEDICAID ==
[~2021-10-02] VITALS: Ht 177.8 cm; Wt 68.5 kg
[2021-10-02 07:59] LABS: Basophils # (auto) 0.1 10 ^3/uL (0-0.2); Basophils % (auto) 0.8 % (0.0-2.0); Eosinophils # (auto) 0.1 10 ^3/uL (0-0.8); Eosinophils % (auto) 1.5 % (0.0-7.0); Hematocrit 27.6 % (41.0-53.0); Hemoglobin 9.4 g/dL (13.5-17.5); Lymphocytes % (auto) 15.8 % (10.0-50.0); Mean Corpuscular Hemoglobin 32.5 pg (28.0-32.0); Mean Corpuscular Hgb Conc. 34.2 g/dL (32.0-36.0); Mean Corpuscular Volume 95.1 fL (80.0-100.0); Monocytes # (auto) 0.9 10 ^3/uL (0-1.3); Monocytes % (auto) 13.3 % (0.0-12.0); Neutrophils # (auto) 4.5 10 ^3/uL (1.6-8.6); Neutrophils % (auto) 68.6 % (37.0-80.0); Nucleated Red Blood Cells % 0.1 %; Red Cell Distribution Width 16.3 % (11.8-14.3); White Blood Cell 6.6 10^3/uL (4.4-10.8)
[2021-10-02 08:13] LABS: Albumin 1.9 g/dL (3.4-5.0); BUN/Creatinine Ratio 17.6; Calcium 7.6 mg/dL (8.5-10.1); INR 1.3 (0.9-1.15); Potassium 3.8 mmol/L (3.5-5.1)
[2021-10-02 08:16] LABS: Bilirubin, Total 0.6 mg/dL (0.2-1.0); Total Protein 6.5 g/dL (6.4-8.2)
[2021-10-02] MEDS ORDERED: ALBUMIN 25% 100 ML IV ONE (13:15)
[2021-10-02] MEDS ORDERED: ALBUMIN 25% 50 ML IV ONE (13:15)
[2021-10-02 14:07] VITALS: BP 126/63
== END 2021-10-02 14:41 | disposition home or self-care (01) ==
LOC: ER 07:12
DX: K70.31 Alcoholic cirrhosis of liver with ascites (principal); F10.10 Alcohol abuse, uncomplicated; I10 Essential (primary) hypertension; Y90.8 Blood alcohol level of 240 mg/100 ml or more
CPT/HCPCS: 36415; 76700; 76942; 80053; 85025; 85610; 85730; 96365; 99285; C1729; P9047

== ENCOUNTER 2021-11-10 08:16 | Emergency (ER) | payer OTHER, MEDICAID ==
[~2021-11-10] VITALS: Ht 177.8 cm; Wt 62.1 kg
[2021-11-10 10:35] LABS: Basophils # (auto) 0 10 ^3/uL (0-0.2); Basophils % (auto) 0.8 % (0.0-2.0); Eosinophils # (auto) 0.1 10 ^3/uL (0-0.8); Eosinophils % (auto) 1.9 % (0.0-7.0); Hematocrit 27.5 % (41.0-53.0); Hemoglobin 9.4 g/dL (13.5-17.5); Lymphocytes % (auto) 17.9 % (10.0-50.0); Mean Corpuscular Hemoglobin 32.1 pg (28.0-32.0); Mean Corpuscular Hgb Conc. 34.3 g/dL (32.0-36.0); Mean Corpuscular Volume 93.5 fL (80.0-100.0); Monocytes # (auto) 0.7 10 ^3/uL (0-1.3); Monocytes % (auto) 13.1 % (0.0-12.0); Neutrophils # (auto) 3.8 10 ^3/uL (1.6-8.6); Neutrophils % (auto) 66.3 % (37.0-80.0); Nucleated Red Blood Cells % 0.1 %; Red Blood Cells 2.94 10^6/uL (4.5-5.90); Red Cell Distribution Width 14.7 % (11.8-14.3); White Blood Cell 5.7 10^3/uL (4.4-10.8)
[2021-11-10 10:46] LABS: Albumin 2.1 g/dL (3.4-5.0); Calcium 7.8 mg/dL (8.5-10.1)
[2021-11-10 10:52] LABS: BUN/Creatinine Ratio 13.6; Bilirubin, Total 0.6 mg/dL (0.2-1.0); Total Protein 7.4 g/dL (6.4-8.2)
[2021-11-10 10:54] LABS: INR 1.3 (0.9-1.15); Partial Thromboplastin Time 34.1 sec (23.6-33.0)
[2021-11-10 14:51] VITALS: BP 106/65
== END 2021-11-10 15:55 | disposition home or self-care (01) ==
LOC: ER 08:16
DX: R18.8 Other ascites (principal); I10 Essential (primary) hypertension; Z90.89 Acquired absence of other organs; Z88.0 Allergy status to penicillin
CPT/HCPCS: 36415; 49083; 76705; 76942; 80053; 85025; 85610; 85730; 99285; C1729